=== PATIENT | male | born 1945 | race Caucasian/White ===

== ENCOUNTER 2018-01-15 13:25 | Inpatient (IN) | payer MEDICARE ==
[~2018-01-15 13:25] MED LIST: GLUCOSE 4 GM CHEW TABLET PO; MIRALAX *UNIT DOSE* 17GM PACKET PO; ONDANSETRON 4 MG TAB (S0181) PO
[2018-01-15] MEDS: NS 1,000 ML IV (15:00)
[2018-01-15] MEDS ORDERED: FUROSEMIDE 20 MG TAB PO (15:45)
[2018-01-15] MEDS: FLUoxetine 20 MG CAP PO (15:57)
[2018-01-15] MEDS: METHYLPHENIDATE 5 MG TAB PO (15:57)
[2018-01-15] MEDS: LIDOCAINE 5% (LIDODERM) PATCH TD (15:59)
[2018-01-15 16:39] LABS: IMMEDIATE SPIN CROSSMATCH 1 1
[2018-01-15 16:45] LABS: BEDSIDE GLUCOSE 112 MG/DL (83-110)
[2018-01-15] MEDS: HumaLOG INSULIN (NovoLOG) PER UNIT SC ×2 (16:54→21:00)
[2018-01-15] MEDS: SENNA 8.6 MG TAB (SENOKOT) PO (21:00)
[2018-01-15] MEDS: **NOTE PATIENT COMMENT** MISC XX (21:00)
[2018-01-15] MEDS: DOCUSATE SODIUM 100 MG CAP PO (21:00)
[2018-01-15 21:11] LABS: BEDSIDE GLUCOSE 243 MG/DL (83-110)
[2018-01-15] MEDS: APIXABAN 5 MG TAB (ELIQUIS) PO (21:31)
[2018-01-15] MEDS: diltiaZEM **CD** 180 MG CAP PO (21:31)
[2018-01-15] MEDS: METOPROLOL TARTRATE 100 MG TAB PO (21:32)
[2018-01-15] MEDS: LACTOBACILLUS ACIDOPHILUS CAP (BACID) PO (21:32)
[2018-01-16 06:41] LABS: BASO % 0.3 % (0.0-1.0); EOS # 0.2 10^3/uL (0.0-0.50); EOS % 1.6 % (0.0-3.0); HEMATOCRIT 25.9 % (42.0-52.0); HEMOGLOBIN 8.6 g/dl (13.5-17.5); IMMATURE GRANULOCYTE % 0.6 % (0-3.0); LYMPH # 1.2 10^3/uL (1.5-4.5); LYMPH % 10.1 % (24.0-44.0); MEAN CORPUSCULAR HEMOGLOBIN 28.9 pg (27.0-33.0); MEAN CORPUSCULAR HGB CONC 33.2 g/dl (32.0-36.5); MEAN CORPUSCULAR VOLUME 86.9 fl (80.0-96.0); MONO # 0.7 10^3/uL (0.0-0.8); MONO % 6.4 % (0.0-5.0); NEUTROPHILS # 9.4 10^3/uL (1.8-7.7); PLATELET COUNT, AUTOMATED 252 10^3/uL (150-450); RED BLOOD COUNT 2.98 10^6/uL (4.30-6.10); RED CELL DISTRIBUTION WIDTH 17.6 % (11.5-14.5); WHITE BLOOD COUNT 11.6 10^3/uL (4.0-10.0)
[2018-01-16 06:50] LABS: BEDSIDE GLUCOSE 132 MG/DL (83-110)
[2018-01-16 07:09] LABS: ALBUMIN 2.3 GM/DL (3.2-5.2); ALBUMIN/GLOBULIN RATIO 0.61 (1.00-1.93); ALKALINE PHOSPHATASE 85 U/L (45-117); ALT/SGPT 19 U/L (12-78); ANION GAP 7 MEQ/L (8-16); AST/SGOT 21 U/L (7-37); BILIRUBIN,TOTAL 0.7 MG/DL (0.2-1.0); BLOOD UREA NITROGEN 23 MG/DL (7-18); CALCIUM LEVEL 8.5 MG/DL (8.8-10.2); CARBON DIOXIDE LEVEL 28 MEQ/L (21-32); CHLORIDE LEVEL 110 MEQ/L (98-107); CREATININE FOR GFR 1.19 MG/DL (0.70-1.30); GLOMERULAR FILTRATION RATE > 60.0 (>42); GLUCOSE, FASTING 126 MG/DL (70-100); SODIUM LEVEL 145 MEQ/L (136-145); TOTAL PROTEIN 6.1 GM/DL (6.4-8.2)
[2018-01-16] MEDS: DOCUSATE SODIUM 100 MG CAP PO ×2 (08:13→21:15)
[2018-01-16] MEDS: LEVEMIR (INSULIN DETEMIR) 1 UNITS/0.01ML SC (08:38)
[2018-01-16] MEDS: HumaLOG INSULIN (NovoLOG) PER UNIT SC ×4 (08:39→21:15)
[2018-01-16] MEDS: LACTOBACILLUS ACIDOPHILUS CAP (BACID) PO ×2 (08:40→21:14)
[2018-01-16] MEDS: FLUoxetine 20 MG CAP PO (08:41)
[2018-01-16] MEDS: diltiaZEM **CD** 180 MG CAP PO ×2 (08:43→21:14)
[2018-01-16] MEDS: LISINOPRIL 20 MG TAB PO (08:43)
[2018-01-16] MEDS: METHYLPHENIDATE 5 MG TAB PO ×2 (08:43→13:00)
[2018-01-16] MEDS: APIXABAN 5 MG TAB (ELIQUIS) PO ×2 (08:44→21:15)
[2018-01-16] MEDS: DIGOXIN 0.125 MG TAB PO (08:44)
[2018-01-16] MEDS: MAGNESIUM GLUCONATE 500 MG TAB PO (08:44)
[2018-01-16] MEDS: MULTIVITAMINS/MINERALS THERAP 1 TAB PO (08:44)
[2018-01-16] MEDS: LIDOCAINE 5% (LIDODERM) PATCH TD (08:45)
[2018-01-16] MEDS: METOPROLOL TARTRATE 100 MG TAB PO ×2 (08:45→21:16)
[2018-01-16] MEDS: AMIODARONE 200 MG TAB (PACERONE) PO (08:45)
[2018-01-16 11:53] LABS: BEDSIDE GLUCOSE 122 MG/DL (83-110)
[2018-01-16] MEDS: ACETAMINOPHEN TAB 650MG DOSE (2X325MG) PO (13:01)
[2018-01-16 16:56] LABS: BEDSIDE GLUCOSE 59 MG/DL (83-110)
[2018-01-16 17:23] LABS: BEDSIDE GLUCOSE 74 MG/DL (83-110)
[2018-01-16 20:42] LABS: BEDSIDE GLUCOSE 128 MG/DL (83-110)
[2018-01-16] MEDS: **NOTE PATIENT COMMENT** MISC XX (21:15)
[2018-01-16] MEDS: SENNA 8.6 MG TAB (SENOKOT) PO (21:15)
[2018-01-17 06:58] LABS: BEDSIDE GLUCOSE 62 MG/DL (83-110)
[2018-01-17] MEDS: HumaLOG INSULIN (NovoLOG) PER UNIT SC ×4 (07:09→21:00)
[2018-01-17] MEDS: LIDOCAINE 5% (LIDODERM) PATCH TD (08:07)
[2018-01-17] MEDS: MAGNESIUM GLUCONATE 500 MG TAB PO (08:07)
[2018-01-17] MEDS: LEVEMIR (INSULIN DETEMIR) 1 UNITS/0.01ML SC (08:07)
[2018-01-17] MEDS: METHYLPHENIDATE 5 MG TAB PO ×2 (08:08→13:00)
[2018-01-17] MEDS: LISINOPRIL 20 MG TAB PO (08:08)
[2018-01-17] MEDS: METOPROLOL TARTRATE 100 MG TAB PO ×2 (08:08→21:43)
[2018-01-17] MEDS: diltiaZEM **CD** 180 MG CAP PO ×2 (08:08→21:43)
[2018-01-17] MEDS: LACTOBACILLUS ACIDOPHILUS CAP (BACID) PO ×2 (08:08→21:42)
[2018-01-17] MEDS: AMIODARONE 200 MG TAB (PACERONE) PO (08:09)
[2018-01-17] MEDS: DIGOXIN 0.125 MG TAB PO (08:09)
[2018-01-17] MEDS: DOCUSATE SODIUM 100 MG CAP PO ×2 (08:09→21:00)
[2018-01-17] MEDS: FLUoxetine 20 MG CAP PO (08:09)
[2018-01-17] MEDS: APIXABAN 5 MG TAB (ELIQUIS) PO ×2 (08:09→21:42)
[2018-01-17] MEDS: MULTIVITAMINS/MINERALS THERAP 1 TAB PO (08:09)
[2018-01-17 12:00] LABS: BEDSIDE GLUCOSE 159 MG/DL (83-110)
[2018-01-17] MEDS: DEXTROSE 50% 50 ML SYRINGE IV (17:26)
[2018-01-17] MEDS: GLUCAGON FOR INJ 1 MG VIAL (J1610) SC (17:26)
[2018-01-17 17:30] LABS: BEDSIDE GLUCOSE 24 MG/DL (83-110)
[2018-01-17 17:30] LABS: BEDSIDE GLUCOSE 113 MG/DL (83-110)
[2018-01-17 17:53] LABS: BEDSIDE GLUCOSE 140 MG/DL (83-110)
[2018-01-17 18:32] LABS: BEDSIDE GLUCOSE 187 MG/DL (83-110)
[2018-01-17 19:39] LABS: BEDSIDE GLUCOSE 209 MG/DL (83-110)
[2018-01-17 20:37] LABS: BEDSIDE GLUCOSE 181 MG/DL (83-110)
[2018-01-17] MEDS: SENNA 8.6 MG TAB (SENOKOT) PO (21:00)
[2018-01-17] MEDS: ACETAMINOPHEN TAB 650MG DOSE (2X325MG) PO (21:43)
[2018-01-17] MEDS: **NOTE PATIENT COMMENT** MISC XX (21:44)
[2018-01-18] MEDS: HumaLOG INSULIN (NovoLOG) PER UNIT SC ×3 (07:30→17:30)
[2018-01-18 07:52] LABS: BEDSIDE GLUCOSE 93 MG/DL (83-110)
[2018-01-18] MEDS: MULTIVITAMINS/MINERALS THERAP 1 TAB PO (09:01)
[2018-01-18] MEDS: DOCUSATE SODIUM 100 MG CAP PO (09:01)
[2018-01-18] MEDS: LACTOBACILLUS ACIDOPHILUS CAP (BACID) PO ×2 (09:01→20:25)
[2018-01-18] MEDS: LISINOPRIL 20 MG TAB PO (09:01)
[2018-01-18] MEDS: MAGNESIUM GLUCONATE 500 MG TAB PO (09:01)
[2018-01-18] MEDS: METOPROLOL TARTRATE 100 MG TAB PO ×2 (09:02→20:27)
[2018-01-18] MEDS: FLUoxetine 20 MG CAP PO (09:02)
[2018-01-18] MEDS: METHYLPHENIDATE 5 MG TAB PO ×2 (09:02→14:51)
[2018-01-18] MEDS: diltiaZEM **CD** 180 MG CAP PO ×2 (09:02→20:26)
[2018-01-18] MEDS: DIGOXIN 0.125 MG TAB PO (09:02)
[2018-01-18] MEDS: APIXABAN 5 MG TAB (ELIQUIS) PO ×2 (09:03→20:26)
[2018-01-18] MEDS: LIDOCAINE 5% (LIDODERM) PATCH TD (09:03)
[2018-01-18] MEDS: AMIODARONE 200 MG TAB (PACERONE) PO (09:03)
[2018-01-18] MEDS: LEVEMIR (INSULIN DETEMIR) 1 UNITS/0.01ML SC (09:04)
[2018-01-18 11:36] LABS: BEDSIDE GLUCOSE 203 MG/DL (83-110)
[2018-01-18 15:57] LABS: KETONE, URINE AUTO RFX NEGATIVE (NEGATIVE); MUCUS, URINE RFX SMALL (NEGATIVE); RBC, URINE AUTO RFX TNTC /HPF (0-3); SPECIFIC GRAVITY UR AUTO RFX 1.012 (1.002-1.035); SQUAM EPITHELIAL CELL UR AURFX 0 /HPF (0-6); YEAST LIKE CELL URINE AUTO RFX MODERATE
[2018-01-18 16:28] LABS: LEUKOCYTE ESTERASE UR AUTO RFX 3+ (NEGATIVE); NITRITE, URINE AUTO RFX POSITIVE (NEGATIVE); WBC, URINE AUTO RFX TNTC /HPF (0-3)
[2018-01-18 16:59] LABS: BEDSIDE GLUCOSE 63 MG/DL (83-110)
[2018-01-18 18:11] LABS: BEDSIDE GLUCOSE 76 MG/DL (83-110)
[2018-01-18] MEDS: SENNA 8.6 MG TAB (SENOKOT) PO (19:52)
[2018-01-18 19:57] LABS: BEDSIDE GLUCOSE 136 MG/DL (83-110)
[2018-01-18] MEDS: **NOTE PATIENT COMMENT** MISC XX (20:27)
[2018-01-19] MEDS: traZODone 50 MG TAB PO ×2 (00:22→23:29)
[2018-01-19 06:21] LABS: BEDSIDE GLUCOSE 109 MG/DL (83-110)
[2018-01-19] MEDS: APIXABAN 5 MG TAB (ELIQUIS) PO ×2 (08:18→21:22)
[2018-01-19] MEDS: LISINOPRIL 20 MG TAB PO ×2 (08:18→21:21)
[2018-01-19] MEDS: METHYLPHENIDATE 5 MG TAB PO ×2 (08:18→14:08)
[2018-01-19] MEDS: FLUoxetine 20 MG CAP PO (08:18)
[2018-01-19] MEDS: HumaLOG INSULIN (NovoLOG) PER UNIT SC ×3 (08:18→17:23)
[2018-01-19] MEDS: MAGNESIUM GLUCONATE 500 MG TAB PO ×2 (08:18→21:20)
[2018-01-19] MEDS: LACTOBACILLUS ACIDOPHILUS CAP (BACID) PO ×2 (08:18→21:20)
[2018-01-19] MEDS: diltiaZEM **CD** 180 MG CAP PO ×2 (08:19→21:22)
[2018-01-19] MEDS: MULTIVITAMINS/MINERALS THERAP 1 TAB PO (08:19)
[2018-01-19] MEDS: METOPROLOL TARTRATE 100 MG TAB PO ×2 (08:19→21:22)
[2018-01-19] MEDS: DIGOXIN 0.125 MG TAB PO (08:19)
[2018-01-19] MEDS: AMIODARONE 200 MG TAB (PACERONE) PO (08:19)
[2018-01-19] MEDS: LIDOCAINE 5% (LIDODERM) PATCH TD (08:20)
[2018-01-19] MEDS: LEVEMIR (INSULIN DETEMIR) 1 UNITS/0.01ML SC (08:20)
[2018-01-19 08:30] LABS: HEMOGLOBIN 8.8 g/dl (13.5-17.5); MEAN CORPUSCULAR HEMOGLOBIN 28.9 pg (27.0-33.0); MEAN CORPUSCULAR HGB CONC 32.6 g/dl (32.0-36.5); MEAN CORPUSCULAR VOLUME 88.8 fl (80.0-96.0); PLATELET COUNT, AUTOMATED 218 10^3/uL (150-450); RED BLOOD COUNT 3.04 10^6/uL (4.30-6.10); WHITE BLOOD COUNT 9.8 10^3/uL (4.0-10.0)
[2018-01-19 09:11] LABS: ALBUMIN 2.3 GM/DL (3.2-5.2); ALBUMIN/GLOBULIN RATIO 0.58 (1.00-1.93); ALKALINE PHOSPHATASE 84 U/L (45-117); ALT/SGPT 26 U/L (12-78); ANION GAP 7 MEQ/L (8-16); AST/SGOT 30 U/L (7-37); BILIRUBIN,TOTAL 0.6 MG/DL (0.2-1.0); BLOOD UREA NITROGEN 27 MG/DL (7-18); CALCIUM LEVEL 8.5 MG/DL (8.8-10.2); CARBON DIOXIDE LEVEL 28 MEQ/L (21-32); CHLORIDE LEVEL 106 MEQ/L (98-107); CREATININE FOR GFR 1.23 MG/DL (0.70-1.30); GLOMERULAR FILTRATION RATE > 60.0 (>42); GLUCOSE, FASTING 120 MG/DL (70-100); MAGNESIUM LEVEL 1.6 MG/DL (1.8-2.4); POTASSIUM SERUM 4.4 MEQ/L (3.5-5.1); SODIUM LEVEL 141 MEQ/L (136-145); TOTAL PROTEIN 6.3 GM/DL (6.4-8.2)
[2018-01-19] MEDS: **hydrALAZINE** 10 MG TAB PO (10:15)
[2018-01-19 12:18] LABS: BEDSIDE GLUCOSE 215 MG/DL (83-110)
[2018-01-19 13:38] LABS: KETONE, URINE AUTO RFX NEGATIVE (NEGATIVE); MUCUS, URINE RFX SMALL (NEGATIVE); NITRITE, URINE AUTO RFX NEGATIVE (NEGATIVE); RBC, URINE AUTO RFX TNTC /HPF (0-3); SPECIFIC GRAVITY UR AUTO RFX 1.012 (1.002-1.035); SQUAM EPITHELIAL CELL UR AURFX 0 /HPF (0-6)
[2018-01-19 13:44] LABS: LEUKOCYTE ESTERASE UR AUTO RFX 3+ (NEGATIVE); WBC, URINE AUTO RFX TNTC /HPF (0-3)
[2018-01-19 16:44] LABS: BEDSIDE GLUCOSE 239 MG/DL (83-110)
[2018-01-19 20:55] LABS: BEDSIDE GLUCOSE 169 MG/DL (83-110)
[2018-01-19] MEDS: **NOTE PATIENT COMMENT** MISC XX (21:00)
[2018-01-19] MEDS: SENNA 8.6 MG TAB (SENOKOT) PO (21:22)
[2018-01-19] MEDS: ACETAMINOPHEN TAB 650MG DOSE (2X325MG) PO (23:29)
[2018-01-20 07:29] LABS: BEDSIDE GLUCOSE 65 MG/DL (83-110)
[2018-01-20] MEDS: HumaLOG INSULIN (NovoLOG) PER UNIT SC ×3 (07:30→16:47)
[2018-01-20 07:50] LABS: HEMATOCRIT 27.3 % (42.0-52.0); HEMOGLOBIN 8.9 g/dl (13.5-17.5); MEAN CORPUSCULAR HEMOGLOBIN 28.8 pg (27.0-33.0); MEAN CORPUSCULAR HGB CONC 32.6 g/dl (32.0-36.5); MEAN CORPUSCULAR VOLUME 88.3 fl (80.0-96.0); PLATELET COUNT, AUTOMATED 232 10^3/uL (150-450); RED BLOOD COUNT 3.09 10^6/uL (4.30-6.10); RED CELL DISTRIBUTION WIDTH 16.4 % (11.5-14.5); WHITE BLOOD COUNT 12.5 10^3/uL (4.0-10.0)
[2018-01-20 08:21] LABS: ALBUMIN 2.3 GM/DL (3.2-5.2); ALBUMIN/GLOBULIN RATIO 0.49 (1.00-1.93); ALKALINE PHOSPHATASE 83 U/L (45-117); ALT/SGPT 29 U/L (12-78); ANION GAP 4 MEQ/L (8-16); AST/SGOT 27 U/L (7-37); BILIRUBIN,TOTAL 0.5 MG/DL (0.2-1.0); BLOOD UREA NITROGEN 29 MG/DL (7-18); CALCIUM LEVEL 9.1 MG/DL (8.8-10.2); CARBON DIOXIDE LEVEL 30 MEQ/L (21-32); CHLORIDE LEVEL 106 MEQ/L (98-107); CREATININE FOR GFR 1.41 MG/DL (0.70-1.30); FERRITIN 1067 NG/ML (26-388); GLOMERULAR FILTRATION RATE 52.6 (>42); GLUCOSE, FASTING 79 MG/DL (70-100); IRON (FE) 16 UG/DL (65-175); MAGNESIUM LEVEL 1.7 MG/DL (1.8-2.4); PERCENT SATURATION 8.2 % (19.7-50.0); POTASSIUM SERUM 4.8 MEQ/L (3.5-5.1); SODIUM LEVEL 140 MEQ/L (136-145); TOTAL IRON BINDING CAPACITY 194 UG/DL (250-450)
[2018-01-20] MEDS: APIXABAN 5 MG TAB (ELIQUIS) PO ×2 (09:13→21:25)
[2018-01-20] MEDS: METOPROLOL TARTRATE 100 MG TAB PO ×2 (09:13→21:25)
[2018-01-20] MEDS: LISINOPRIL 20 MG TAB PO ×2 (09:13→21:26)
[2018-01-20] MEDS: MULTIVITAMINS/MINERALS THERAP 1 TAB PO (09:14)
[2018-01-20] MEDS: AMIODARONE 200 MG TAB (PACERONE) PO (09:14)
[2018-01-20] MEDS: MAGNESIUM GLUCONATE 500 MG TAB PO ×2 (09:14→21:24)
[2018-01-20] MEDS: FLUoxetine 20 MG CAP PO (09:14)
[2018-01-20] MEDS: diltiaZEM **CD** 180 MG CAP PO ×2 (09:14→21:25)
[2018-01-20] MEDS: METHYLPHENIDATE 5 MG TAB PO ×2 (09:14→13:12)
[2018-01-20] MEDS: LACTOBACILLUS ACIDOPHILUS CAP (BACID) PO ×2 (09:14→21:24)
[2018-01-20] MEDS: DIGOXIN 0.125 MG TAB PO (09:15)
[2018-01-20] MEDS: LIDOCAINE 5% (LIDODERM) PATCH TD (09:15)
[2018-01-20] MEDS: LEVEMIR (INSULIN DETEMIR) 1 UNITS/0.01ML SC (09:22)
[2018-01-20 11:53] LABS: BEDSIDE GLUCOSE 154 MG/DL (83-110)
[2018-01-20 12:08] LABS: VITAMIN B12 LEVEL 531 PG/ML (247-911)
[2018-01-20 12:09] LABS: FOLATE 11.5 NG/ML (>5.4)
[2018-01-20] MEDS: cefTRIAXone SOD 1 GM in D5W MINI-BAG PLUS 50 ML IV (13:12)
[2018-01-20 16:42] LABS: BEDSIDE GLUCOSE 170 MG/DL (83-110)
[2018-01-20] MEDS: **NOTE PATIENT COMMENT** MISC XX (21:00)
[2018-01-20] MEDS: SENNA 8.6 MG TAB (SENOKOT) PO (21:00)
[2018-01-20] MEDS: FERROUS SULFATE 325MG TAB PO (21:24)
[2018-01-20 23:20] LABS: BEDSIDE GLUCOSE 320 MG/DL (83-110)
[2018-01-21 07:03] LABS: BEDSIDE GLUCOSE 118 MG/DL (83-110)
[2018-01-21] MEDS: HumaLOG INSULIN (NovoLOG) PER UNIT SC ×3 (07:30→16:44)
[2018-01-21] MEDS: LIDOCAINE 5% (LIDODERM) PATCH TD (09:09)
[2018-01-21] MEDS: MAGNESIUM GLUCONATE 500 MG TAB PO ×2 (09:10→21:35)
[2018-01-21] MEDS: LACTOBACILLUS ACIDOPHILUS CAP (BACID) PO ×2 (09:10→21:00)
[2018-01-21] MEDS: LEVEMIR (INSULIN DETEMIR) 1 UNITS/0.01ML SC (09:10)
[2018-01-21] MEDS: METOPROLOL TARTRATE 100 MG TAB PO ×2 (09:10→21:37)
[2018-01-21] MEDS: diltiaZEM **CD** 180 MG CAP PO ×2 (09:11→21:37)
[2018-01-21] MEDS: LISINOPRIL 20 MG TAB PO ×2 (09:11→21:36)
[2018-01-21] MEDS: DIGOXIN 0.125 MG TAB PO (09:11)
[2018-01-21] MEDS: METHYLPHENIDATE 5 MG TAB PO ×2 (09:11→14:11)
[2018-01-21] MEDS: AMIODARONE 200 MG TAB (PACERONE) PO (09:11)
[2018-01-21] MEDS: APIXABAN 5 MG TAB (ELIQUIS) PO ×2 (09:11→21:36)
[2018-01-21] MEDS: FERROUS SULFATE 325MG TAB PO ×2 (09:11→21:37)
[2018-01-21] MEDS: FLUoxetine 20 MG CAP PO (09:11)
[2018-01-21] MEDS: MULTIVITAMINS/MINERALS THERAP 1 TAB PO (09:11)
[2018-01-21 12:17] LABS: BEDSIDE GLUCOSE 217 MG/DL (83-110)
[2018-01-21] MEDS: cefTRIAXone SOD 1 GM in D5W MINI-BAG PLUS 50 ML IV (12:31)
[2018-01-21 16:51] LABS: BEDSIDE GLUCOSE 137 MG/DL (83-110)
[2018-01-21] MEDS: SENNA 8.6 MG TAB (SENOKOT) PO (21:00)
[2018-01-21] MEDS: **NOTE PATIENT COMMENT** MISC XX (21:37)
[2018-01-21 21:40] LABS: BEDSIDE GLUCOSE 159 MG/DL (83-110)
[2018-01-22] MEDS: CHLORHEXIDINE ORAL RINSE 0.12%/15ML 120ML BOTTLE MT
[2018-01-22 07:01] LABS: BEDSIDE GLUCOSE 91 MG/DL (83-110)
[2018-01-22 07:35] LABS: BASO % 0.1 % (0.0-1.0); EOS # 0.1 10^3/uL (0.0-0.50); EOS % 0.4 % (0.0-3.0); HEMATOCRIT 27.5 % (42.0-52.0); HEMOGLOBIN 9.2 g/dl (13.5-17.5); IMMATURE GRANULOCYTE % 0.5 % (0-3.0); LYMPH # 1.1 10^3/uL (1.5-4.5); MEAN CORPUSCULAR HEMOGLOBIN 29.1 pg (27.0-33.0); MEAN CORPUSCULAR HGB CONC 33.5 g/dl (32.0-36.5); MONO # 0.8 10^3/uL (0.0-0.8); MONO % 6.1 % (0.0-5.0); NEUTROPHILS # 11.7 10^3/uL (1.8-7.7); NEUTROPHILS % 84.9 % (36.0-66.0); PLATELET COUNT, AUTOMATED 261 10^3/uL (150-450); RED BLOOD COUNT 3.16 10^6/uL (4.30-6.10); RED CELL DISTRIBUTION WIDTH 16.1 % (11.5-14.5); WHITE BLOOD COUNT 13.7 10^3/uL (4.0-10.0)
[2018-01-22 08:09] LABS: ANION GAP 6 MEQ/L (8-16); BLOOD UREA NITROGEN 26 MG/DL (7-18); CALCIUM LEVEL 8.5 MG/DL (8.8-10.2); CARBON DIOXIDE LEVEL 29 MEQ/L (21-32); CHLORIDE LEVEL 105 MEQ/L (98-107); CREATININE FOR GFR 1.38 MG/DL (0.70-1.30); GLOMERULAR FILTRATION RATE 53.9 (>42); GLUCOSE, FASTING 90 MG/DL (70-100); POTASSIUM SERUM 4.3 MEQ/L (3.5-5.1); SODIUM LEVEL 140 MEQ/L (136-145)
[2018-01-22 08:18] LABS: BEDSIDE GLUCOSE 93 MG/DL (83-110)
[2018-01-22] MEDS: HumaLOG INSULIN (NovoLOG) PER UNIT SC ×3 (08:19→17:03)
[2018-01-22] MEDS: METHYLPHENIDATE 5 MG TAB PO ×2 (08:20→14:23)
[2018-01-22] MEDS: MULTIVITAMINS/MINERALS THERAP 1 TAB PO (08:20)
[2018-01-22] MEDS: FERROUS SULFATE 325MG TAB PO ×2 (08:20→20:57)
[2018-01-22] MEDS: LACTOBACILLUS ACIDOPHILUS CAP (BACID) PO ×2 (08:20→20:58)
[2018-01-22] MEDS: APIXABAN 5 MG TAB (ELIQUIS) PO ×2 (08:20→20:58)
[2018-01-22] MEDS: LEVEMIR (INSULIN DETEMIR) 1 UNITS/0.01ML SC (08:20)
[2018-01-22] MEDS: MAGNESIUM GLUCONATE 500 MG TAB PO ×2 (08:21→21:04)
[2018-01-22] MEDS: LISINOPRIL 20 MG TAB PO ×2 (08:21→21:00)
[2018-01-22] MEDS: DIGOXIN 0.125 MG TAB PO (08:21)
[2018-01-22] MEDS: AMIODARONE 200 MG TAB (PACERONE) PO (08:21)
[2018-01-22] MEDS: METOPROLOL TARTRATE 100 MG TAB PO ×2 (08:22→21:00)
[2018-01-22] MEDS: diltiaZEM **CD** 180 MG CAP PO ×2 (08:22→21:00)
[2018-01-22] MEDS: FLUoxetine 20 MG CAP PO (08:22)
[2018-01-22] MEDS: LIDOCAINE 5% (LIDODERM) PATCH TD (08:22)
[2018-01-22] MEDS: ACETAMINOPHEN TAB 650MG DOSE (2X325MG) PO ×2 (10:12→20:58)
[2018-01-22] MEDS: cefTRIAXone SOD 1 GM in D5W MINI-BAG PLUS 50 ML IV (11:22)
[2018-01-22 11:36] LABS: BEDSIDE GLUCOSE 330 MG/DL (83-110)
[2018-01-22 17:05] LABS: BEDSIDE GLUCOSE 84 MG/DL (83-110)
[2018-01-22] MEDS: SENNA 8.6 MG TAB (SENOKOT) PO (20:57)
[2018-01-22] MEDS: traZODone 50 MG TAB PO (20:58)
[2018-01-22] MEDS: **NOTE PATIENT COMMENT** MISC XX (21:01)
[2018-01-22 21:36] LABS: BEDSIDE GLUCOSE 72 MG/DL (83-110)
[2018-01-23 07:01] LABS: BEDSIDE GLUCOSE 98 MG/DL (83-110)
[2018-01-23] MEDS: HumaLOG INSULIN (NovoLOG) PER UNIT SC ×3 (07:30→17:30)
[2018-01-23] MEDS: diltiaZEM **CD** 180 MG CAP PO ×2 (08:59→20:58)
[2018-01-23] MEDS: AMIODARONE 200 MG TAB (PACERONE) PO (08:59)
[2018-01-23] MEDS: FERROUS SULFATE 325MG TAB PO ×2 (08:59→20:58)
[2018-01-23] MEDS: APIXABAN 5 MG TAB (ELIQUIS) PO ×2 (08:59→20:58)
[2018-01-23] MEDS: DIGOXIN 0.125 MG TAB PO (08:59)
[2018-01-23] MEDS: FLUoxetine 20 MG CAP PO (08:59)
[2018-01-23] MEDS: LACTOBACILLUS ACIDOPHILUS CAP (BACID) PO ×2 (08:59→20:58)
[2018-01-23] MEDS: LIDOCAINE 5% (LIDODERM) PATCH TD (09:00)
[2018-01-23] MEDS: LEVEMIR (INSULIN DETEMIR) 1 UNITS/0.01ML SC (09:01)
[2018-01-23] MEDS: MULTIVITAMINS/MINERALS THERAP 1 TAB PO (09:05)
[2018-01-23] MEDS: MAGNESIUM GLUCONATE 500 MG TAB PO ×2 (09:05→20:58)
[2018-01-23] MEDS: LISINOPRIL 20 MG TAB PO ×2 (09:05→20:58)
[2018-01-23] MEDS: METHYLPHENIDATE 5 MG TAB PO ×2 (09:06→14:24)
[2018-01-23] MEDS: METOPROLOL TARTRATE 100 MG TAB PO ×2 (09:06→20:58)
[2018-01-23 12:19] LABS: BEDSIDE GLUCOSE 278 MG/DL (83-110)
[2018-01-23] MEDS: cefTRIAXone SOD 1 GM in D5W MINI-BAG PLUS 50 ML IV (12:28)
[2018-01-23] MEDS: BISACODYL 5 MG TAB PO (14:24)
[2018-01-23] MEDS: BISACODYL 10 MG SUPP PR (14:25)
[2018-01-23 17:04] LABS: BEDSIDE GLUCOSE 156 MG/DL (83-110)
[2018-01-23 19:47] LABS: BEDSIDE GLUCOSE 230 MG/DL (83-110)
[2018-01-23] MEDS: ACETAMINOPHEN TAB 650MG DOSE (2X325MG) PO (20:11)
[2018-01-23] MEDS: SENNA 8.6 MG TAB (SENOKOT) PO (20:58)
[2018-01-23] MEDS: **NOTE PATIENT COMMENT** MISC XX (20:59)
[2018-01-23 22:11] LABS: HEMATOCRIT 25.4 % (42.0-52.0); HEMOGLOBIN 8.4 g/dl (13.5-17.5); MEAN CORPUSCULAR HEMOGLOBIN 28.8 pg (27.0-33.0); MEAN CORPUSCULAR HGB CONC 33.1 g/dl (32.0-36.5); PLATELET COUNT, AUTOMATED 245 10^3/uL (150-450); RED BLOOD COUNT 2.92 10^6/uL (4.30-6.10); RED CELL DISTRIBUTION WIDTH 16.1 % (11.5-14.5); WHITE BLOOD COUNT 14.9 10^3/uL (4.0-10.0)
[2018-01-23 22:31] LABS: ANION GAP 8 MEQ/L (8-16); BLOOD UREA NITROGEN 29 MG/DL (7-18); CALCIUM LEVEL 8.4 MG/DL (8.8-10.2); CARBON DIOXIDE LEVEL 25 MEQ/L (21-32); CHLORIDE LEVEL 103 MEQ/L (98-107); CREATININE FOR GFR 1.66 MG/DL (0.70-1.30); GLOMERULAR FILTRATION RATE 43.6 (>42); GLUCOSE, FASTING 257 MG/DL (70-100); MAGNESIUM LEVEL 1.5 MG/DL (1.8-2.4); POTASSIUM SERUM 4.3 MEQ/L (3.5-5.1); SODIUM LEVEL 136 MEQ/L (136-145)
[2018-01-23 22:43] LABS: LACTIC ACID SEPSIS PROTOCOL 2.5 MMOL/L (0.4-2.0)
[2018-01-23] MEDS: NS 1,000 ML IV ×2 (22:57→23:56)
[2018-01-23] MEDS: traZODone 50 MG TAB PO (23:13)
[2018-01-24 07:23] LABS: BEDSIDE GLUCOSE 148 MG/DL (83-110)
[2018-01-24] MEDS: HumaLOG INSULIN (NovoLOG) PER UNIT SC ×3 (07:30→17:30)
[2018-01-24] MEDS: FERROUS SULFATE 325MG TAB PO ×2 (09:26→20:57)
[2018-01-24] MEDS: MULTIVITAMINS/MINERALS THERAP 1 TAB PO (09:26)
[2018-01-24] MEDS: LACTOBACILLUS ACIDOPHILUS CAP (BACID) PO ×2 (09:26→20:56)
[2018-01-24] MEDS: MAGNESIUM GLUCONATE 500 MG TAB PO ×2 (09:26→20:57)
[2018-01-24] MEDS: APIXABAN 5 MG TAB (ELIQUIS) PO ×2 (09:27→20:57)
[2018-01-24] MEDS: DIGOXIN 0.125 MG TAB PO (09:27)
[2018-01-24] MEDS: ACETAMINOPHEN TAB 650MG DOSE (2X325MG) PO (09:28)
[2018-01-24] MEDS: METHYLPHENIDATE 5 MG TAB PO ×2 (09:28→12:56)
[2018-01-24] MEDS: diltiaZEM **CD** 180 MG CAP PO ×2 (09:29→20:56)
[2018-01-24] MEDS: METOPROLOL TARTRATE 100 MG TAB PO ×2 (09:29→20:56)
[2018-01-24] MEDS: FLUoxetine 20 MG CAP PO (09:29)
[2018-01-24] MEDS: LISINOPRIL 20 MG TAB PO ×2 (09:29→20:56)
[2018-01-24] MEDS: AMIODARONE 200 MG TAB (PACERONE) PO (09:30)
[2018-01-24] MEDS: LIDOCAINE 5% (LIDODERM) PATCH TD (09:30)
[2018-01-24] MEDS: LEVEMIR (INSULIN DETEMIR) 1 UNITS/0.01ML SC (09:31)
[2018-01-24 12:44] LABS: BEDSIDE GLUCOSE 396 MG/DL (83-110)
[2018-01-24] MEDS: cefTRIAXone SOD 1 GM in D5W MINI-BAG PLUS 50 ML IV (12:56)
[2018-01-24] MEDS: NS 1,000 ML IV (12:56)
[2018-01-24 17:34] LABS: BEDSIDE GLUCOSE 144 MG/DL (83-110)
[2018-01-24] MEDS: SENNA 8.6 MG TAB (SENOKOT) PO (20:56)
[2018-01-24] MEDS: **NOTE PATIENT COMMENT** MISC XX (20:57)
[2018-01-24 21:13] LABS: BEDSIDE GLUCOSE 142 MG/DL (83-110)
[2018-01-25 07:54] LABS: BEDSIDE GLUCOSE 92 MG/DL (83-110)
[2018-01-25] MEDS: HumaLOG INSULIN (NovoLOG) PER UNIT SC ×3 (07:58→18:08)
[2018-01-25] MEDS: METOPROLOL TARTRATE 100 MG TAB PO ×2 (08:46→21:40)
[2018-01-25] MEDS: MULTIVITAMINS/MINERALS THERAP 1 TAB PO (08:46)
[2018-01-25] MEDS: LISINOPRIL 20 MG TAB PO ×2 (08:46→21:39)
[2018-01-25] MEDS: FERROUS SULFATE 325MG TAB PO ×2 (08:46→21:40)
[2018-01-25] MEDS: AMIODARONE 200 MG TAB (PACERONE) PO (08:46)
[2018-01-25] MEDS: LACTOBACILLUS ACIDOPHILUS CAP (BACID) PO ×2 (08:46→21:38)
[2018-01-25] MEDS: FLUoxetine 20 MG CAP PO (08:47)
[2018-01-25] MEDS: diltiaZEM **CD** 180 MG CAP PO ×2 (08:47→21:39)
[2018-01-25] MEDS: METHYLPHENIDATE 5 MG TAB PO ×2 (08:47→13:56)
[2018-01-25] MEDS: DIGOXIN 0.125 MG TAB PO (08:47)
[2018-01-25] MEDS: MAGNESIUM GLUCONATE 500 MG TAB PO ×2 (08:47→21:39)
[2018-01-25] MEDS: APIXABAN 5 MG TAB (ELIQUIS) PO ×2 (08:47→21:39)
[2018-01-25] MEDS: LIDOCAINE 5% (LIDODERM) PATCH TD (08:48)
[2018-01-25] MEDS: LEVEMIR (INSULIN DETEMIR) 1 UNITS/0.01ML SC (08:48)
[2018-01-25 11:42] LABS: BEDSIDE GLUCOSE 392 MG/DL (83-110)
[2018-01-25] MEDS ORDERED: cefTRIAXone SOD 1 GM VIAL (J0696) IM (12:00)
[2018-01-25] MEDS ORDERED: cefTRIAXone SOD 1 GM in D5W MINI-BAG PLUS 50 ML IV (13:00)
[2018-01-25] MEDS: cefTRIAXone SOD 1 GM in D5W MINI-BAG PLUS 50 ML IV (13:01)
[2018-01-25] MEDS: NS 1,000 ML IV (16:29)
[2018-01-25] MEDS: MEGESTROL ES SUSP 625 MG/5 ML UDC PO (16:30)
[2018-01-25 16:39] LABS: BEDSIDE GLUCOSE 160 MG/DL (83-110)
[2018-01-25] MEDS: **NOTE PATIENT COMMENT** MISC XX (21:00)
[2018-01-25] MEDS: SENNA 8.6 MG TAB (SENOKOT) PO (21:40)
[2018-01-25 21:59] LABS: BEDSIDE GLUCOSE 175 MG/DL (83-110)
[2018-01-25] MEDS: traZODone 50 MG TAB PO (23:21)
[2018-01-26 05:24] LABS: BEDSIDE GLUCOSE 147 MG/DL (83-110)
[2018-01-26] MEDS: HumaLOG INSULIN (NovoLOG) PER UNIT SC ×3 (08:05→17:38)
[2018-01-26] MEDS: METHYLPHENIDATE 5 MG TAB PO ×2 (09:26→14:57)
[2018-01-26] MEDS: diltiaZEM **CD** 180 MG CAP PO ×2 (09:26→21:46)
[2018-01-26] MEDS: LACTOBACILLUS ACIDOPHILUS CAP (BACID) PO ×2 (09:27→21:42)
[2018-01-26] MEDS: APIXABAN 5 MG TAB (ELIQUIS) PO ×2 (09:27→21:42)
[2018-01-26] MEDS: MAGNESIUM GLUCONATE 500 MG TAB PO ×2 (09:27→21:42)
[2018-01-26] MEDS: MULTIVITAMINS/MINERALS THERAP 1 TAB PO (09:27)
[2018-01-26] MEDS: FLUoxetine 20 MG CAP PO (09:27)
[2018-01-26] MEDS: AMIODARONE 200 MG TAB (PACERONE) PO (09:27)
[2018-01-26] MEDS: METOPROLOL TARTRATE 100 MG TAB PO ×2 (09:27→21:47)
[2018-01-26] MEDS: DIGOXIN 0.125 MG TAB PO (09:28)
[2018-01-26] MEDS: FERROUS SULFATE 325MG TAB PO ×2 (09:28→21:42)
[2018-01-26] MEDS: MEGESTROL ES SUSP 625 MG/5 ML UDC PO (09:28)
[2018-01-26] MEDS: LIDOCAINE 5% (LIDODERM) PATCH TD (09:28)
[2018-01-26] MEDS: LEVEMIR (INSULIN DETEMIR) 1 UNITS/0.01ML SC (09:28)
[2018-01-26] MEDS: LISINOPRIL 20 MG TAB PO ×2 (09:29→21:46)
[2018-01-26] MEDS: NS 1,000 ML IV (10:50)
[2018-01-26 11:20] LABS: BASO % 0.3 % (0.0-1.0); EOS # 0.1 10^3/uL (0.0-0.50); EOS % 1.2 % (0.0-3.0); HEMATOCRIT 24.2 % (42.0-52.0); HEMOGLOBIN 8.2 g/dl (13.5-17.5); IMMATURE GRANULOCYTE % 0.8 % (0-3.0); LYMPH # 1.3 10^3/uL (1.5-4.5); LYMPH % 12.1 % (24.0-44.0); MEAN CORPUSCULAR HEMOGLOBIN 29.9 pg (27.0-33.0); MEAN CORPUSCULAR HGB CONC 33.9 g/dl (32.0-36.5); MEAN CORPUSCULAR VOLUME 88.3 fl (80.0-96.0); MONO # 0.6 10^3/uL (0.0-0.8); MONO % 5.7 % (0.0-5.0); NEUTROPHILS # 8.5 10^3/uL (1.8-7.7); NEUTROPHILS % 79.9 % (36.0-66.0); PLATELET COUNT, AUTOMATED 246 10^3/uL (150-450); RED BLOOD COUNT 2.74 10^6/uL (4.30-6.10); RED CELL DISTRIBUTION WIDTH 15.8 % (11.5-14.5); WHITE BLOOD COUNT 10.7 10^3/uL (4.0-10.0)
[2018-01-26 11:31] LABS: PROTHROMBIN TIME 21.4 SECONDS (12.4-14.5)
[2018-01-26 11:32] LABS: ALBUMIN 2.1 GM/DL (3.2-5.2); ALBUMIN/GLOBULIN RATIO 0.53 (1.00-1.93); ALKALINE PHOSPHATASE 94 U/L (45-117); ALT/SGPT 30 U/L (12-78); ANION GAP 6 MEQ/L (8-16); AST/SGOT 22 U/L (7-37); BILIRUBIN,TOTAL 0.3 MG/DL (0.2-1.0); BLOOD UREA NITROGEN 18 MG/DL (7-18); CALCIUM LEVEL 8.6 MG/DL (8.8-10.2); CARBON DIOXIDE LEVEL 27 MEQ/L (21-32); CHLORIDE LEVEL 108 MEQ/L (98-107); CREATININE FOR GFR 1.03 MG/DL (0.70-1.30); GLOMERULAR FILTRATION RATE > 60.0 (>42); GLUCOSE, FASTING 199 MG/DL (70-100); MAGNESIUM LEVEL 1.5 MG/DL (1.8-2.4); POTASSIUM SERUM 4.4 MEQ/L (3.5-5.1); SODIUM LEVEL 141 MEQ/L (136-145); TOTAL PROTEIN 6.1 GM/DL (6.4-8.2)
[2018-01-26 12:26] LABS: BEDSIDE GLUCOSE 205 MG/DL (83-110)
[2018-01-26] MEDS: MAG SULF 1GM/100ML (MAG RUN) 1 GM in APPROPRIATE DILUENT 1 EA IV ×2 (12:38→14:57)
[2018-01-26] MEDS: cefTRIAXone SOD 1 GM in D5W MINI-BAG PLUS 50 ML IV (13:42)
[2018-01-26 17:16] LABS: BEDSIDE GLUCOSE 234 MG/DL (83-110)
[2018-01-26 20:52] LABS: BEDSIDE GLUCOSE 318 MG/DL (83-110)
[2018-01-26] MEDS: **NOTE PATIENT COMMENT** MISC XX (21:00)
[2018-01-26] MEDS: SENNA 8.6 MG TAB (SENOKOT) PO (21:42)
[2018-01-27] MEDS: NS 1,000 ML IV (06:25)
[2018-01-27 06:30] LABS: BEDSIDE GLUCOSE 101 MG/DL (83-110)
[2018-01-27] MEDS: HumaLOG INSULIN (NovoLOG) PER UNIT SC ×3 (07:42→17:09)
[2018-01-27] MEDS: METHYLPHENIDATE 5 MG TAB PO ×2 (08:41→14:50)
[2018-01-27] MEDS: APIXABAN 5 MG TAB (ELIQUIS) PO (08:41)
[2018-01-27] MEDS: AMIODARONE 200 MG TAB (PACERONE) PO (08:42)
[2018-01-27] MEDS: MEGESTROL ES SUSP 625 MG/5 ML UDC PO (08:42)
[2018-01-27] MEDS: MAGNESIUM GLUCONATE 500 MG TAB PO ×2 (08:42→20:39)
[2018-01-27] MEDS: MULTIVITAMINS/MINERALS THERAP 1 TAB PO (08:42)
[2018-01-27] MEDS: FLUoxetine 20 MG CAP PO (08:43)
[2018-01-27] MEDS: LACTOBACILLUS ACIDOPHILUS CAP (BACID) PO ×2 (08:43→20:40)
[2018-01-27] MEDS: FERROUS SULFATE 325MG TAB PO ×2 (08:43→20:40)
[2018-01-27] MEDS: diltiaZEM **CD** 180 MG CAP PO ×2 (08:43→20:39)
[2018-01-27] MEDS: LISINOPRIL 20 MG TAB PO ×2 (08:43→20:40)
[2018-01-27] MEDS: METOPROLOL TARTRATE 100 MG TAB PO ×2 (08:43→20:40)
[2018-01-27] MEDS: LEVEMIR (INSULIN DETEMIR) 1 UNITS/0.01ML SC (08:44)
[2018-01-27] MEDS: DIGOXIN 0.125 MG TAB PO (08:44)
[2018-01-27] MEDS: LIDOCAINE 5% (LIDODERM) PATCH TD (08:44)
[2018-01-27] MEDS: ACETAMINOPHEN TAB 650MG DOSE (2X325MG) PO ×2 (09:28→20:40)
[2018-01-27 11:10] LABS: HEMATOCRIT 25.2 % (42.0-52.0); HEMOGLOBIN 8.2 g/dl (13.5-17.5); MEAN CORPUSCULAR HEMOGLOBIN 28.3 pg (27.0-33.0); MEAN CORPUSCULAR HGB CONC 32.5 g/dl (32.0-36.5); MEAN CORPUSCULAR VOLUME 86.9 fl (80.0-96.0); PLATELET COUNT, AUTOMATED 251 10^3/uL (150-450); RED CELL DISTRIBUTION WIDTH 15.9 % (11.5-14.5); WHITE BLOOD COUNT 12.8 10^3/uL (4.0-10.0)
[2018-01-27 12:12] LABS: ALBUMIN 2.2 GM/DL (3.2-5.2); ALBUMIN/GLOBULIN RATIO 0.54 (1.00-1.93); ALKALINE PHOSPHATASE 102 U/L (45-117); ALT/SGPT 28 U/L (12-78); ANION GAP 7 MEQ/L (8-16); AST/SGOT 19 U/L (7-37); BILIRUBIN,TOTAL 0.3 MG/DL (0.2-1.0); BLOOD UREA NITROGEN 18 MG/DL (7-18); CALCIUM LEVEL 8.4 MG/DL (8.8-10.2); CARBON DIOXIDE LEVEL 27 MEQ/L (21-32); CHLORIDE LEVEL 108 MEQ/L (98-107); GLOMERULAR FILTRATION RATE > 60.0 (>42); GLUCOSE, FASTING 303 MG/DL (70-100); POTASSIUM SERUM 4.2 MEQ/L (3.5-5.1); SODIUM LEVEL 142 MEQ/L (136-145); TOTAL PROTEIN 6.3 GM/DL (6.4-8.2)
[2018-01-27] MEDS: cefTRIAXone SOD 1 GM in D5W MINI-BAG PLUS 50 ML IV (12:24)
[2018-01-27 16:44] LABS: BEDSIDE GLUCOSE 290 MG/DL (83-110)
[2018-01-27 20:34] LABS: BEDSIDE GLUCOSE 181 MG/DL (83-110)
[2018-01-27] MEDS: traZODone 50 MG TAB PO (20:39)
[2018-01-27] MEDS: SENNA 8.6 MG TAB (SENOKOT) PO (20:40)
[2018-01-27] MEDS: **NOTE PATIENT COMMENT** MISC XX (20:41)
[2018-01-28] MEDS: NS 1,000 ML IV ×2 (03:51→14:50)
[2018-01-28 06:16] LABS: HEMATOCRIT 25.2 % (42.0-52.0); HEMOGLOBIN 8.2 g/dl (13.5-17.5); MEAN CORPUSCULAR HEMOGLOBIN 28.7 pg (27.0-33.0); MEAN CORPUSCULAR HGB CONC 32.5 g/dl (32.0-36.5); MEAN CORPUSCULAR VOLUME 88.1 fl (80.0-96.0); PLATELET COUNT, AUTOMATED 268 10^3/uL (150-450); RED BLOOD COUNT 2.86 10^6/uL (4.30-6.10); RED CELL DISTRIBUTION WIDTH 15.9 % (11.5-14.5); WHITE BLOOD COUNT 14.6 10^3/uL (4.0-10.0)
[2018-01-28 06:43] LABS: ALBUMIN 2.1 GM/DL (3.2-5.2); ALBUMIN/GLOBULIN RATIO 0.54 (1.00-1.93); ALKALINE PHOSPHATASE 89 U/L (45-117); ALT/SGPT 26 U/L (12-78); ANION GAP 6 MEQ/L (8-16); AST/SGOT 18 U/L (7-37); BILIRUBIN,TOTAL 0.4 MG/DL (0.2-1.0); BLOOD UREA NITROGEN 15 MG/DL (7-18); CALCIUM LEVEL 8.5 MG/DL (8.8-10.2); CARBON DIOXIDE LEVEL 28 MEQ/L (21-32); CHLORIDE LEVEL 105 MEQ/L (98-107); GLOMERULAR FILTRATION RATE > 60.0 (>42); GLUCOSE, FASTING 81 MG/DL (70-100); MAGNESIUM LEVEL 1.6 MG/DL (1.8-2.4); SODIUM LEVEL 139 MEQ/L (136-145)
[2018-01-28] MEDS: HumaLOG INSULIN (NovoLOG) PER UNIT SC ×3 (07:30→16:43)
[2018-01-28] MEDS: MEGESTROL ES SUSP 625 MG/5 ML UDC PO (09:09)
[2018-01-28] MEDS: FLUoxetine 20 MG CAP PO (09:09)
[2018-01-28] MEDS: LEVEMIR (INSULIN DETEMIR) 1 UNITS/0.01ML SC (09:11)
[2018-01-28] MEDS: LACTOBACILLUS ACIDOPHILUS CAP (BACID) PO ×2 (09:11→20:38)
[2018-01-28] MEDS: MULTIVITAMINS/MINERALS THERAP 1 TAB PO (09:11)
[2018-01-28] MEDS: FERROUS SULFATE 325MG TAB PO ×2 (09:11→20:36)
[2018-01-28] MEDS: MAGNESIUM GLUCONATE 500 MG TAB PO ×2 (09:11→20:37)
[2018-01-28] MEDS: METHYLPHENIDATE 5 MG TAB PO ×2 (09:12→13:51)
[2018-01-28] MEDS: AMIODARONE 200 MG TAB (PACERONE) PO (09:12)
[2018-01-28] MEDS: METOPROLOL TARTRATE 100 MG TAB PO ×2 (09:12→20:36)
[2018-01-28] MEDS: diltiaZEM **CD** 180 MG CAP PO ×2 (09:12→20:37)
[2018-01-28] MEDS: DIGOXIN 0.125 MG TAB PO (09:13)
[2018-01-28] MEDS: LISINOPRIL 20 MG TAB PO ×2 (09:13→20:37)
[2018-01-28] MEDS: LIDOCAINE 5% (LIDODERM) PATCH TD (09:13)
[2018-01-28 12:32] LABS: BEDSIDE GLUCOSE 136 MG/DL (83-110)
[2018-01-28] MEDS: cefTRIAXone SOD 1 GM in D5W MINI-BAG PLUS 50 ML IV (12:45)
[2018-01-28 16:48] LABS: BEDSIDE GLUCOSE 108 MG/DL (83-110)
[2018-01-28] MEDS: SENNA 8.6 MG TAB (SENOKOT) PO (20:38)
[2018-01-28] MEDS: traZODone 50 MG TAB PO (20:38)
[2018-01-28] MEDS: ACETAMINOPHEN TAB 650MG DOSE (2X325MG) PO (20:38)
[2018-01-28] MEDS: **NOTE PATIENT COMMENT** MISC XX (20:38)
[2018-01-28 20:53] LABS: BEDSIDE GLUCOSE 131 MG/DL (83-110)
[2018-01-29] MEDS ORDERED: APIXABAN 5 MG TAB (ELIQUIS) PO (06:00)
[2018-01-29 06:23] LABS: BASO % 0.2 % (0.0-1.0); EOS # 0.1 10^3/uL (0.0-0.50); EOS % 0.4 % (0.0-3.0); HEMOGLOBIN 8.6 g/dl (13.5-17.5); IMMATURE GRANULOCYTE % 1.1 % (0-3.0); LYMPH # 1.3 10^3/uL (1.5-4.5); LYMPH % 8.1 % (24.0-44.0); MEAN CORPUSCULAR HEMOGLOBIN 28.7 pg (27.0-33.0); MEAN CORPUSCULAR HGB CONC 33.1 g/dl (32.0-36.5); MEAN CORPUSCULAR VOLUME 86.7 fl (80.0-96.0); MONO # 1.1 10^3/uL (0.0-0.8); MONO % 6.5 % (0.0-5.0); NEUTROPHILS # 13.8 10^3/uL (1.8-7.7); NEUTROPHILS % 83.7 % (36.0-66.0); PLATELET COUNT, AUTOMATED 253 10^3/uL (150-450); WHITE BLOOD COUNT 16.5 10^3/uL (4.0-10.0)
[2018-01-29 06:39] LABS: BEDSIDE GLUCOSE 137 MG/DL (83-110)
[2018-01-29 06:47] LABS: ERYTHROCYTE SEDIMENTATION RATE 128 mm/hr (0-20)
[2018-01-29] MEDS: HumaLOG INSULIN (NovoLOG) PER UNIT SC ×3 (07:30→17:02)
[2018-01-29] MEDS: METHYLPHENIDATE 5 MG TAB PO ×2 (08:00→13:41)
[2018-01-29] MEDS ORDERED: LIDOCAINE 1% MDV 20ML VIAL As Ordered ×2 (09:37→09:39)
[2018-01-29] MEDS: MAGNESIUM GLUCONATE 500 MG TAB PO ×2 (11:20→20:59)
[2018-01-29] MEDS: MEGESTROL ES SUSP 625 MG/5 ML UDC PO (11:20)
[2018-01-29] MEDS: LEVEMIR (INSULIN DETEMIR) 1 UNITS/0.01ML SC (11:20)
[2018-01-29] MEDS: diltiaZEM **CD** 180 MG CAP PO ×2 (11:21→20:58)
[2018-01-29] MEDS: LACTOBACILLUS ACIDOPHILUS CAP (BACID) PO ×2 (11:21→20:58)
[2018-01-29] MEDS: FLUoxetine 20 MG CAP PO (11:21)
[2018-01-29] MEDS: DIGOXIN 0.125 MG TAB PO (11:21)
[2018-01-29] MEDS: FERROUS SULFATE 325MG TAB PO ×2 (11:22→20:58)
[2018-01-29] MEDS: MULTIVITAMINS/MINERALS THERAP 1 TAB PO (11:22)
[2018-01-29] MEDS: LISINOPRIL 20 MG TAB PO ×2 (11:22→20:58)
[2018-01-29] MEDS: METOPROLOL TARTRATE 100 MG TAB PO ×2 (11:23→20:59)
[2018-01-29] MEDS: LIDOCAINE 5% (LIDODERM) PATCH TD (11:23)
[2018-01-29] MEDS: AMIODARONE 200 MG TAB (PACERONE) PO (11:23)
[2018-01-29 12:10] LABS: BEDSIDE GLUCOSE 180 MG/DL (83-110)
[2018-01-29] MEDS: cefTRIAXone SOD 1 GM in D5W MINI-BAG PLUS 50 ML IV (12:40)
[2018-01-29] MEDS: NS 1,000 ML IV (12:40)
[2018-01-29] MEDS: ERTAPENEM SODIUM 1 GM in NS MINI-BAG PLUS 50 ML IV (16:39)
[2018-01-29] MEDS: FLUCONAZOLE 100 MG TAB PO (16:40)
[2018-01-29 17:00] LABS: BEDSIDE GLUCOSE 137 MG/DL (83-110)
[2018-01-29] MEDS: APIXABAN 5 MG TAB (ELIQUIS) PO (20:58)
[2018-01-29] MEDS: **NOTE PATIENT COMMENT** MISC XX (21:00)
[2018-01-29 21:23] LABS: BEDSIDE GLUCOSE 110 MG/DL (83-110)
[2018-01-30 06:21] LABS: HEMATOCRIT 24.2 % (42.0-52.0); MEAN CORPUSCULAR HEMOGLOBIN 28.8 pg (27.0-33.0); MEAN CORPUSCULAR HGB CONC 33.1 g/dl (32.0-36.5); MEAN CORPUSCULAR VOLUME 87.1 fl (80.0-96.0); PLATELET COUNT, AUTOMATED 257 10^3/uL (150-450); RED BLOOD COUNT 2.78 10^6/uL (4.30-6.10); RED CELL DISTRIBUTION WIDTH 16.1 % (11.5-14.5); WHITE BLOOD COUNT 13.8 10^3/uL (4.0-10.0)
[2018-01-30 06:41] LABS: ERYTHROCYTE SEDIMENTATION RATE 126 mm/hr (0-20)
[2018-01-30 06:58] LABS: ALBUMIN 1.9 GM/DL (3.2-5.2); ALKALINE PHOSPHATASE 82 U/L (45-117); ALT/SGPT 18 U/L (12-78); ANION GAP 7 MEQ/L (8-16); AST/SGOT 14 U/L (7-37); BILIRUBIN,TOTAL 0.4 MG/DL (0.2-1.0); BLOOD UREA NITROGEN 15 MG/DL (7-18); CALCIUM LEVEL 8.6 MG/DL (8.8-10.2); CARBON DIOXIDE LEVEL 25 MEQ/L (21-32); CHLORIDE LEVEL 106 MEQ/L (98-107); CREATININE FOR GFR 0.94 MG/DL (0.70-1.30); GLOMERULAR FILTRATION RATE > 60.0 (>42); GLUCOSE, FASTING 74 MG/DL (70-100); SODIUM LEVEL 138 MEQ/L (136-145); TOTAL PROTEIN 6.7 GM/DL (6.4-8.2)
[2018-01-30] MEDS: HumaLOG INSULIN (NovoLOG) PER UNIT SC ×3 (07:50→17:45)
[2018-01-30] MEDS: LIDOCAINE 5% (LIDODERM) PATCH TD (08:30)
[2018-01-30] MEDS: MEGESTROL ES SUSP 625 MG/5 ML UDC PO (08:30)
[2018-01-30] MEDS: METOPROLOL TARTRATE 100 MG TAB PO ×2 (08:30→20:53)
[2018-01-30] MEDS: MULTIVITAMINS/MINERALS THERAP 1 TAB PO (08:31)
[2018-01-30] MEDS: FERROUS SULFATE 325MG TAB PO ×2 (08:31→20:53)
[2018-01-30] MEDS: AMIODARONE 200 MG TAB (PACERONE) PO (08:31)
[2018-01-30] MEDS: LACTOBACILLUS ACIDOPHILUS CAP (BACID) PO ×2 (08:32→20:54)
[2018-01-30] MEDS: APIXABAN 5 MG TAB (ELIQUIS) PO ×2 (08:32→20:54)
[2018-01-30] MEDS: METHYLPHENIDATE 5 MG TAB PO ×2 (08:32→14:25)
[2018-01-30] MEDS: diltiaZEM **CD** 180 MG CAP PO ×2 (08:32→20:53)
[2018-01-30] MEDS: FLUCONAZOLE 100 MG TAB PO (08:32)
[2018-01-30] MEDS: FLUoxetine 20 MG CAP PO (08:32)
[2018-01-30] MEDS: DIGOXIN 0.125 MG TAB PO (08:32)
[2018-01-30] MEDS: LISINOPRIL 20 MG TAB PO ×2 (08:32→20:54)
[2018-01-30] MEDS: MAGNESIUM GLUCONATE 500 MG TAB PO ×2 (08:33→20:54)
[2018-01-30] MEDS: LEVEMIR (INSULIN DETEMIR) 1 UNITS/0.01ML SC (08:33)
[2018-01-30 11:41] LABS: BEDSIDE GLUCOSE 242 MG/DL (83-110)
[2018-01-30 16:45] LABS: BEDSIDE GLUCOSE 203 MG/DL (83-110)
[2018-01-30] MEDS: ERTAPENEM SODIUM 1 GM in NS MINI-BAG PLUS 50 ML IV (17:45)
[2018-01-30 20:08] LABS: BEDSIDE GLUCOSE 182 MG/DL (83-110)
[2018-01-30] MEDS: **NOTE PATIENT COMMENT** MISC XX (20:54)
[2018-01-31] MEDS: HumaLOG INSULIN (NovoLOG) PER UNIT SC ×3 (06:11→17:53)
[2018-01-31 06:15] LABS: BEDSIDE GLUCOSE 118 MG/DL (83-110)
[2018-01-31] MEDS: LEVEMIR (INSULIN DETEMIR) 1 UNITS/0.01ML SC (08:48)
[2018-01-31] MEDS: FERROUS SULFATE 325MG TAB PO ×2 (08:48→20:49)
[2018-01-31] MEDS: METHYLPHENIDATE 5 MG TAB PO ×2 (08:48→13:16)
[2018-01-31] MEDS: LACTOBACILLUS ACIDOPHILUS CAP (BACID) PO ×2 (08:48→20:48)
[2018-01-31] MEDS: FLUoxetine 20 MG CAP PO (08:48)
[2018-01-31] MEDS: MULTIVITAMINS/MINERALS THERAP 1 TAB PO (08:48)
[2018-01-31] MEDS: MEGESTROL ES SUSP 625 MG/5 ML UDC PO (08:48)
[2018-01-31] MEDS: diltiaZEM **CD** 180 MG CAP PO ×2 (08:49→20:49)
[2018-01-31] MEDS: AMIODARONE 200 MG TAB (PACERONE) PO (08:49)
[2018-01-31] MEDS: LISINOPRIL 20 MG TAB PO ×2 (08:49→20:49)
[2018-01-31] MEDS: FLUCONAZOLE 100 MG TAB PO (08:49)
[2018-01-31] MEDS: MAGNESIUM GLUCONATE 500 MG TAB PO ×2 (08:49→20:48)
[2018-01-31] MEDS: DIGOXIN 0.125 MG TAB PO (08:50)
[2018-01-31] MEDS: METOPROLOL TARTRATE 100 MG TAB PO ×2 (08:50→20:49)
[2018-01-31] MEDS: LIDOCAINE 5% (LIDODERM) PATCH TD (08:50)
[2018-01-31] MEDS: APIXABAN 5 MG TAB (ELIQUIS) PO ×2 (08:50→20:49)
[2018-01-31 11:44] LABS: BEDSIDE GLUCOSE 237 MG/DL (83-110)
[2018-01-31 16:56] LABS: BEDSIDE GLUCOSE 278 MG/DL (83-110)
[2018-01-31] MEDS: ERTAPENEM SODIUM 1 GM in NS MINI-BAG PLUS 50 ML IV (17:53)
[2018-01-31 20:34] LABS: BEDSIDE GLUCOSE 229 MG/DL (83-110)
[2018-01-31] MEDS: **NOTE PATIENT COMMENT** MISC XX (20:50)
[2018-01-31] MEDS: CHLORHEXIDINE ORAL RINSE 0.12%/15ML 120ML BOTTLE MT (20:50)
[2018-01-31] MEDS: traZODone 50 MG TAB PO (21:08)
[2018-02-01 06:18] LABS: BASO % 0.3 % (0.0-1.0); EOS # 0.1 10^3/uL (0.0-0.50); EOS % 0.5 % (0.0-3.0); HEMATOCRIT 24.4 % (42.0-52.0); IMMATURE GRANULOCYTE % 1.2 % (0-3.0); LYMPH # 1.8 10^3/uL (1.5-4.5); LYMPH % 17.9 % (24.0-44.0); MEAN CORPUSCULAR HEMOGLOBIN 28.5 pg (27.0-33.0); MEAN CORPUSCULAR HGB CONC 32.8 g/dl (32.0-36.5); MEAN CORPUSCULAR VOLUME 86.8 fl (80.0-96.0); MONO # 0.6 10^3/uL (0.0-0.8); MONO % 6.3 % (0.0-5.0); NEUTROPHILS # 7.4 10^3/uL (1.8-7.7); NEUTROPHILS % 73.8 % (36.0-66.0); PLATELET COUNT, AUTOMATED 299 10^3/uL (150-450); RED BLOOD COUNT 2.81 10^6/uL (4.30-6.10); RED CELL DISTRIBUTION WIDTH 15.9 % (11.5-14.5)
[2018-02-01 06:38] LABS: ANION GAP 5 MEQ/L (8-16); BLOOD UREA NITROGEN 17 MG/DL (7-18); CALCIUM LEVEL 8.9 MG/DL (8.8-10.2); CARBON DIOXIDE LEVEL 27 MEQ/L (21-32); CHLORIDE LEVEL 103 MEQ/L (98-107); CREATININE FOR GFR 1.07 MG/DL (0.70-1.30); GLOMERULAR FILTRATION RATE > 60.0 (>42); GLUCOSE, FASTING 156 MG/DL (70-100); POTASSIUM SERUM 4.3 MEQ/L (3.5-5.1); SODIUM LEVEL 135 MEQ/L (136-145)
[2018-02-01] MEDS: diltiaZEM **CD** 180 MG CAP PO ×2 (08:39→21:05)
[2018-02-01] MEDS: APIXABAN 5 MG TAB (ELIQUIS) PO ×2 (08:39→21:05)
[2018-02-01] MEDS: MAGNESIUM GLUCONATE 500 MG TAB PO ×2 (08:39→21:05)
[2018-02-01] MEDS: MEGESTROL ES SUSP 625 MG/5 ML UDC PO (08:39)
[2018-02-01] MEDS: FLUoxetine 20 MG CAP PO (08:39)
[2018-02-01] MEDS: METHYLPHENIDATE 5 MG TAB PO (08:40)
[2018-02-01] MEDS: METOPROLOL TARTRATE 100 MG TAB PO ×2 (08:40→21:05)
[2018-02-01] MEDS: AMIODARONE 200 MG TAB (PACERONE) PO (08:40)
[2018-02-01] MEDS: LIDOCAINE 5% (LIDODERM) PATCH TD (08:40)
[2018-02-01] MEDS: FLUCONAZOLE 100 MG TAB PO (08:40)
[2018-02-01] MEDS: FERROUS SULFATE 325MG TAB PO ×2 (08:41→21:05)
[2018-02-01] MEDS: LISINOPRIL 20 MG TAB PO ×2 (08:41→21:05)
[2018-02-01] MEDS: MULTIVITAMINS/MINERALS THERAP 1 TAB PO (08:41)
[2018-02-01] MEDS: LACTOBACILLUS ACIDOPHILUS CAP (BACID) PO ×2 (08:41→21:04)
[2018-02-01] MEDS: DIGOXIN 0.125 MG TAB PO (08:41)
[2018-02-01] MEDS: LEVEMIR (INSULIN DETEMIR) 1 UNITS/0.01ML SC (08:42)
[2018-02-01] MEDS: HumaLOG INSULIN (NovoLOG) PER UNIT SC ×3 (08:43→17:10)
[2018-02-01] MEDS: ACETAMINOPHEN TAB 650MG DOSE (2X325MG) PO (11:12)
[2018-02-01 11:48] LABS: BEDSIDE GLUCOSE 289 MG/DL (83-110)
[2018-02-01] MEDS ORDERED: SODIUM CHLORIDE 0.9% INJ 10 ML SYR IV (14:30)
[2018-02-01 15:30] LABS: C REACTIVE PROTEIN QUANTITATIV 6.32 MG/DL (0.00-0.30)
[2018-02-01 16:47] LABS: BEDSIDE GLUCOSE 188 MG/DL (83-110)
[2018-02-01] MEDS: SODIUM CHLORIDE 0.9% INJ 10 ML SYR IV (17:10)
[2018-02-01] MEDS: LevoFLOXacin 500 MG TABLET PO (17:10)
[2018-02-01 20:30] LABS: BEDSIDE GLUCOSE 278 MG/DL (83-110)
[2018-02-01] MEDS: **NOTE PATIENT COMMENT** MISC XX (21:00)
[2018-02-01] MEDS: CHLORHEXIDINE ORAL RINSE 0.12%/15ML 120ML BOTTLE MT (21:03)
[2018-02-02] MEDS: LevoFLOXacin 500 MG TABLET PO (05:03)
[2018-02-02] MEDS: SODIUM CHLORIDE 0.9% INJ 10 ML SYR IV ×2 (05:04→17:26)
[2018-02-02] MEDS: ACETAMINOPHEN TAB 650MG DOSE (2X325MG) PO (05:04)
[2018-02-02 07:03] LABS: BEDSIDE GLUCOSE 134 MG/DL (83-110)
[2018-02-02] MEDS ORDERED: ISOVUE-370 76% 100ML VIAL (Q9967) As Ordered (07:03)
[2018-02-02] MEDS: MEGESTROL ES SUSP 625 MG/5 ML UDC PO (08:55)
[2018-02-02] MEDS: LACTOBACILLUS ACIDOPHILUS CAP (BACID) PO ×2 (08:56→21:34)
[2018-02-02] MEDS: diltiaZEM **CD** 180 MG CAP PO ×2 (08:56→21:39)
[2018-02-02] MEDS: FLUoxetine 20 MG CAP PO (08:56)
[2018-02-02] MEDS: FLUCONAZOLE 100 MG TAB PO (08:57)
[2018-02-02] MEDS: FERROUS SULFATE 325MG TAB PO ×2 (08:57→21:35)
[2018-02-02] MEDS: DIGOXIN 0.125 MG TAB PO (08:58)
[2018-02-02] MEDS: LISINOPRIL 20 MG TAB PO ×2 (08:58→21:38)
[2018-02-02] MEDS: MAGNESIUM GLUCONATE 500 MG TAB PO ×2 (08:58→21:35)
[2018-02-02] MEDS: AMIODARONE 200 MG TAB (PACERONE) PO (08:58)
[2018-02-02] MEDS: APIXABAN 5 MG TAB (ELIQUIS) PO ×2 (08:59→21:35)
[2018-02-02] MEDS: MULTIVITAMINS/MINERALS THERAP 1 TAB PO (08:59)
[2018-02-02] MEDS: METHYLPHENIDATE 5 MG TAB PO (09:00)
[2018-02-02] MEDS: METOPROLOL TARTRATE 100 MG TAB PO ×2 (09:00→21:38)
[2018-02-02] MEDS: LIDOCAINE 5% (LIDODERM) PATCH TD (09:01)
[2018-02-02] MEDS: LEVEMIR (INSULIN DETEMIR) 1 UNITS/0.01ML SC (09:02)
[2018-02-02] MEDS: HumaLOG INSULIN (NovoLOG) PER UNIT SC ×3 (09:02→17:28)
[2018-02-02 12:08] LABS: BEDSIDE GLUCOSE 196 MG/DL (83-110)
[2018-02-02] MEDS: NS 1,000 ML IV (12:43)
[2018-02-02 15:18] LABS: KETONE, URINE AUTO RFX NEGATIVE (NEGATIVE); LEUKOCYTE ESTERASE UR AUTO RFX 2+ (NEGATIVE); MUCUS, URINE RFX SMALL (NEGATIVE); NITRITE, URINE AUTO RFX NEGATIVE (NEGATIVE); RBC, URINE AUTO RFX TNTC /HPF (0-3); SPECIFIC GRAVITY UR AUTO RFX 1.055 (1.002-1.035); SQUAM EPITHELIAL CELL UR AURFX 0 /HPF (0-6); WBC, URINE AUTO RFX TNTC /HPF (0-3)
[2018-02-02 17:31] LABS: BEDSIDE GLUCOSE 186 MG/DL (83-110)
[2018-02-02] MEDS: **NOTE PATIENT COMMENT** MISC XX (21:00)
[2018-02-02 21:04] LABS: BEDSIDE GLUCOSE 275 MG/DL (83-110)
[2018-02-02] MEDS: traZODone 100 MG TAB PO (21:36)
[2018-02-02] MEDS: CHLORHEXIDINE ORAL RINSE 0.12%/15ML 120ML BOTTLE MT (21:36)
[2018-02-03] MEDS: NS 1,000 ML IV (03:57)
[2018-02-03] MEDS: SODIUM CHLORIDE 0.9% INJ 10 ML SYR IV ×2 (06:00→18:16)
[2018-02-03] MEDS: LevoFLOXacin 500 MG TABLET PO (06:46)
[2018-02-03 07:02] LABS: HEMATOCRIT 22.8 % (42.0-52.0); HEMOGLOBIN 8.1 g/dl (13.5-17.5); MEAN CORPUSCULAR HEMOGLOBIN 31.9 pg (27.0-33.0); MEAN CORPUSCULAR HGB CONC 35.5 g/dl (32.0-36.5); MEAN CORPUSCULAR VOLUME 89.8 fl (80.0-96.0); PLATELET COUNT, AUTOMATED 286 10^3/uL (150-450); RED BLOOD COUNT 2.54 10^6/uL (4.30-6.10); RED CELL DISTRIBUTION WIDTH 16.4 % (11.5-14.5); WHITE BLOOD COUNT 15.8 10^3/uL (4.0-10.0)
[2018-02-03 07:40] LABS: ALKALINE PHOSPHATASE 82 U/L (45-117); ALT/SGPT 28 U/L (12-78); ANION GAP 8 MEQ/L (8-16); AST/SGOT 15 U/L (7-37); BILIRUBIN,TOTAL 0.5 MG/DL (0.2-1.0); BLOOD UREA NITROGEN 18 MG/DL (7-18); CALCIUM LEVEL 8.6 MG/DL (8.8-10.2); CARBON DIOXIDE LEVEL 25 MEQ/L (21-32); CHLORIDE LEVEL 105 MEQ/L (98-107); CREATININE FOR GFR 1.07 MG/DL (0.70-1.30); GLOMERULAR FILTRATION RATE > 60.0 (>42); GLUCOSE, FASTING 111 MG/DL (70-100); POTASSIUM SERUM 4.8 MEQ/L (3.5-5.1); SODIUM LEVEL 138 MEQ/L (136-145)
[2018-02-03] MEDS: LEVEMIR (INSULIN DETEMIR) 1 UNITS/0.01ML SC (08:54)
[2018-02-03] MEDS: LIDOCAINE 5% (LIDODERM) PATCH TD (08:54)
[2018-02-03] MEDS: MAGNESIUM GLUCONATE 500 MG TAB PO ×2 (08:55→20:46)
[2018-02-03] MEDS: diltiaZEM **CD** 180 MG CAP PO ×2 (08:55→20:47)
[2018-02-03] MEDS: AMIODARONE 200 MG TAB (PACERONE) PO (08:55)
[2018-02-03] MEDS: MEGESTROL ES SUSP 625 MG/5 ML UDC PO (08:55)
[2018-02-03] MEDS: FLUCONAZOLE 100 MG TAB PO (08:55)
[2018-02-03] MEDS: APIXABAN 5 MG TAB (ELIQUIS) PO ×2 (08:55→20:46)
[2018-02-03] MEDS: MULTIVITAMINS/MINERALS THERAP 1 TAB PO (08:56)
[2018-02-03] MEDS: LACTOBACILLUS ACIDOPHILUS CAP (BACID) PO ×2 (08:56→20:47)
[2018-02-03] MEDS: LISINOPRIL 20 MG TAB PO ×2 (08:56→20:47)
[2018-02-03] MEDS: METHYLPHENIDATE 5 MG TAB PO (08:56)
[2018-02-03] MEDS: FERROUS SULFATE 325MG TAB PO ×2 (08:56→20:46)
[2018-02-03] MEDS: DIGOXIN 0.125 MG TAB PO (08:56)
[2018-02-03] MEDS: METOPROLOL TARTRATE 100 MG TAB PO ×2 (08:56→20:47)
[2018-02-03] MEDS: FLUoxetine 20 MG CAP PO (08:56)
[2018-02-03] MEDS: HumaLOG INSULIN (NovoLOG) PER UNIT SC ×3 (08:57→18:15)
[2018-02-03] MEDS ORDERED: FLUoxetine 20 MG CAP PO (09:00)
[2018-02-03] MEDS: LINEZOLID 600MG TABLET (ZYVOX) PO ×2 (12:26→20:46)
[2018-02-03 12:32] LABS: BEDSIDE GLUCOSE 279 MG/DL (83-110)
[2018-02-03 17:04] LABS: BEDSIDE GLUCOSE 269 MG/DL (83-110)
[2018-02-03 20:14] LABS: BEDSIDE GLUCOSE 232 MG/DL (83-110)
[2018-02-03] MEDS: traZODone 100 MG TAB PO (20:46)
[2018-02-03] MEDS: **NOTE PATIENT COMMENT** MISC XX (20:48)
[2018-02-04 06:06] LABS: BEDSIDE GLUCOSE 173 MG/DL (83-110)
[2018-02-04] MEDS: LevoFLOXacin 500 MG TABLET PO (06:14)
[2018-02-04] MEDS: LEVEMIR (INSULIN DETEMIR) 1 UNITS/0.01ML SC (06:14)
[2018-02-04] MEDS ORDERED: SLF 3 ML SYR IV (06:30)
[2018-02-04 06:50] LABS: HEMATOCRIT 24.8 % (42.0-52.0); HEMOGLOBIN 8.1 g/dl (13.5-17.5); MEAN CORPUSCULAR HEMOGLOBIN 28.6 pg (27.0-33.0); MEAN CORPUSCULAR HGB CONC 32.7 g/dl (32.0-36.5); MEAN CORPUSCULAR VOLUME 87.6 fl (80.0-96.0); PLATELET COUNT, AUTOMATED 278 10^3/uL (150-450); RED BLOOD COUNT 2.83 10^6/uL (4.30-6.10); RED CELL DISTRIBUTION WIDTH 16.3 % (11.5-14.5); WHITE BLOOD COUNT 12.4 10^3/uL (4.0-10.0)
[2018-02-04 07:10] LABS: ALBUMIN/GLOBULIN RATIO 0.43 (1.00-1.93); ALKALINE PHOSPHATASE 77 U/L (45-117); ALT/SGPT 22 U/L (12-78); ANION GAP 5 MEQ/L (8-16); AST/SGOT 14 U/L (7-37); BILIRUBIN,TOTAL 0.4 MG/DL (0.2-1.0); BLOOD UREA NITROGEN 19 MG/DL (7-18); C REACTIVE PROTEIN QUANTITATIV 9.61 MG/DL (0.00-0.30); CALCIUM LEVEL 8.9 MG/DL (8.8-10.2); CARBON DIOXIDE LEVEL 27 MEQ/L (21-32); CHLORIDE LEVEL 104 MEQ/L (98-107); CREATININE FOR GFR 1.19 MG/DL (0.70-1.30); GLOMERULAR FILTRATION RATE > 60.0 (>42); GLUCOSE, FASTING 137 MG/DL (70-100); POTASSIUM SERUM 4.5 MEQ/L (3.5-5.1); SODIUM LEVEL 136 MEQ/L (136-145); TOTAL PROTEIN 6.6 GM/DL (6.4-8.2)
[2018-02-04] MEDS: HumaLOG INSULIN (NovoLOG) PER UNIT SC ×3 (07:30→18:02)
[2018-02-04] MEDS: MEGESTROL ES SUSP 625 MG/5 ML UDC PO (09:04)
[2018-02-04] MEDS: METHYLPHENIDATE 5 MG TAB PO (09:05)
[2018-02-04] MEDS: diltiaZEM **CD** 180 MG CAP PO ×2 (09:05→21:00)
[2018-02-04] MEDS: AMIODARONE 200 MG TAB (PACERONE) PO (09:05)
[2018-02-04] MEDS: LINEZOLID 600MG TABLET (ZYVOX) PO ×2 (09:05→21:13)
[2018-02-04] MEDS: DIGOXIN 0.125 MG TAB PO (09:05)
[2018-02-04] MEDS: FLUoxetine 20 MG CAP PO (09:05)
[2018-02-04] MEDS: LACTOBACILLUS ACIDOPHILUS CAP (BACID) PO ×2 (09:06→21:13)
[2018-02-04] MEDS: MAGNESIUM GLUCONATE 500 MG TAB PO ×2 (09:06→21:13)
[2018-02-04] MEDS: LISINOPRIL 20 MG TAB PO ×2 (09:06→21:13)
[2018-02-04] MEDS: FLUCONAZOLE 100 MG TAB PO (09:06)
[2018-02-04] MEDS: METOPROLOL TARTRATE 100 MG TAB PO ×2 (09:07→21:00)
[2018-02-04] MEDS: FERROUS SULFATE 325MG TAB PO ×2 (09:07→21:13)
[2018-02-04] MEDS: APIXABAN 5 MG TAB (ELIQUIS) PO ×2 (09:07→21:13)
[2018-02-04] MEDS: LIDOCAINE 5% (LIDODERM) PATCH TD (09:07)
[2018-02-04] MEDS: MULTIVITAMINS/MINERALS THERAP 1 TAB PO (09:07)
[2018-02-04 11:27] LABS: BEDSIDE GLUCOSE 208 MG/DL (83-110)
[2018-02-04] MEDS: SLF 3 ML SYR IV ×2 (12:34→21:14)
[2018-02-04 16:33] LABS: KETONE, URINE AUTO RFX NEGATIVE (NEGATIVE); NITRITE, URINE AUTO RFX NEGATIVE (NEGATIVE); RBC, URINE AUTO RFX TNTC /HPF (0-3); SQUAM EPITHELIAL CELL UR AURFX 0 /HPF (0-6); TRANSITIONAL EPITHELIAL AU RFX 3 /HPF
[2018-02-04 16:35] LABS: LEUKOCYTE ESTERASE UR AUTO RFX 2+ (NEGATIVE); WBC, URINE AUTO RFX TNTC /HPF (0-3)
[2018-02-04 17:03] LABS: BEDSIDE GLUCOSE 334 MG/DL (83-110)
[2018-02-04 20:50] LABS: BEDSIDE GLUCOSE 381 MG/DL (83-110)
[2018-02-04] MEDS: **NOTE PATIENT COMMENT** MISC XX (21:00)
[2018-02-04] MEDS: traZODone 100 MG TAB PO (21:13)
[2018-02-05 06:11] LABS: BEDSIDE GLUCOSE 200 MG/DL (83-110)
[2018-02-05] MEDS: SLF 3 ML SYR IV ×3 (06:17→21:18)
[2018-02-05] MEDS: LEVEMIR (INSULIN DETEMIR) 1 UNITS/0.01ML SC (06:17)
[2018-02-05] MEDS: LevoFLOXacin 500 MG TABLET PO (06:17)
[2018-02-05] MEDS: LIDOCAINE 5% (LIDODERM) PATCH TD (09:22)
[2018-02-05] MEDS: MEGESTROL ES SUSP 625 MG/5 ML UDC PO (09:22)
[2018-02-05] MEDS: METHYLPHENIDATE 5 MG TAB PO (09:22)
[2018-02-05] MEDS: FERROUS SULFATE 325MG TAB PO ×2 (09:23→21:15)
[2018-02-05] MEDS: AMIODARONE 200 MG TAB (PACERONE) PO (09:23)
[2018-02-05] MEDS: FLUCONAZOLE 100 MG TAB PO (09:23)
[2018-02-05] MEDS: LACTOBACILLUS ACIDOPHILUS CAP (BACID) PO ×2 (09:23→21:14)
[2018-02-05] MEDS: METOPROLOL TARTRATE 100 MG TAB PO ×2 (09:23→21:15)
[2018-02-05] MEDS: APIXABAN 5 MG TAB (ELIQUIS) PO ×2 (09:23→21:15)
[2018-02-05] MEDS: diltiaZEM **CD** 180 MG CAP PO ×2 (09:23→21:15)
[2018-02-05] MEDS: LINEZOLID 600MG TABLET (ZYVOX) PO ×2 (09:23→21:14)
[2018-02-05] MEDS: FLUoxetine 20 MG CAP PO (09:23)
[2018-02-05] MEDS: LISINOPRIL 20 MG TAB PO ×2 (09:24→21:15)
[2018-02-05] MEDS: DIGOXIN 0.125 MG TAB PO (09:24)
[2018-02-05] MEDS: MULTIVITAMINS/MINERALS THERAP 1 TAB PO (09:24)
[2018-02-05] MEDS: HumaLOG INSULIN (NovoLOG) PER UNIT SC ×3 (09:25→18:12)
[2018-02-05] MEDS: MAGNESIUM GLUCONATE 500 MG TAB PO ×2 (09:25→21:14)
[2018-02-05 12:21] LABS: BEDSIDE GLUCOSE 244 MG/DL (83-110)
[2018-02-05 20:32] LABS: BEDSIDE GLUCOSE 222 MG/DL (83-110)
[2018-02-05] MEDS: traZODone 100 MG TAB PO (21:14)
[2018-02-05] MEDS: ACETAMINOPHEN TAB 650MG DOSE (2X325MG) PO (21:18)
[2018-02-05] MEDS: **NOTE PATIENT COMMENT** MISC XX (21:19)
[2018-02-06] MEDS: SLF 3 ML SYR IV ×3 (05:29→21:57)
[2018-02-06] MEDS: LevoFLOXacin 500 MG TABLET PO (05:30)
[2018-02-06 07:24] LABS: BEDSIDE GLUCOSE 143 MG/DL (83-110)
[2018-02-06] MEDS: HumaLOG INSULIN (NovoLOG) PER UNIT SC ×3 (07:30→16:55)
[2018-02-06] MEDS: FLUoxetine 20 MG CAP PO (08:51)
[2018-02-06] MEDS: MAGNESIUM GLUCONATE 500 MG TAB PO ×2 (08:51→21:53)
[2018-02-06] MEDS: METHYLPHENIDATE 5 MG TAB PO (08:52)
[2018-02-06] MEDS: FERROUS SULFATE 325MG TAB PO ×2 (08:52→21:54)
[2018-02-06] MEDS: METOPROLOL TARTRATE 100 MG TAB PO ×2 (08:52→21:55)
[2018-02-06] MEDS: DIGOXIN 0.125 MG TAB PO (08:52)
[2018-02-06] MEDS: FLUCONAZOLE 100 MG TAB PO (08:53)
[2018-02-06] MEDS: AMIODARONE 200 MG TAB (PACERONE) PO (08:53)
[2018-02-06] MEDS: LINEZOLID 600MG TABLET (ZYVOX) PO ×2 (08:53→21:54)
[2018-02-06] MEDS: LEVEMIR (INSULIN DETEMIR) 1 UNITS/0.01ML SC (08:53)
[2018-02-06] MEDS: MULTIVITAMINS/MINERALS THERAP 1 TAB PO (08:53)
[2018-02-06] MEDS: APIXABAN 5 MG TAB (ELIQUIS) PO ×2 (08:53→21:54)
[2018-02-06] MEDS: LACTOBACILLUS ACIDOPHILUS CAP (BACID) PO ×2 (08:53→21:56)
[2018-02-06] MEDS: diltiaZEM **CD** 180 MG CAP PO ×2 (08:53→21:55)
[2018-02-06] MEDS: MEGESTROL ES SUSP 625 MG/5 ML UDC PO (08:53)
[2018-02-06] MEDS: LISINOPRIL 20 MG TAB PO ×2 (08:54→21:56)
[2018-02-06] MEDS: LIDOCAINE 5% (LIDODERM) PATCH TD (08:54)
[2018-02-06 11:58] LABS: BEDSIDE GLUCOSE 183 MG/DL (83-110)
[2018-02-06 12:44] LABS: HEMATOCRIT 28.3 % (42.0-52.0); HEMOGLOBIN 9.1 g/dl (13.5-17.5)
[2018-02-06 16:53] LABS: BEDSIDE GLUCOSE 103 MG/DL (83-110)
[2018-02-06 20:27] LABS: BEDSIDE GLUCOSE 120 MG/DL (83-110)
[2018-02-06] MEDS: traZODone 100 MG TAB PO (21:54)
[2018-02-06] MEDS: ACETAMINOPHEN TAB 650MG DOSE (2X325MG) PO (21:55)
[2018-02-06] MEDS: **NOTE PATIENT COMMENT** MISC XX (21:56)
[2018-02-07] MEDS: SLF 3 ML SYR IV ×3 (06:00→20:20)
[2018-02-07] MEDS: LevoFLOXacin 500 MG TABLET PO (06:25)
[2018-02-07] MEDS: LEVEMIR (INSULIN DETEMIR) 1 UNITS/0.01ML SC (06:26)
[2018-02-07 06:28] LABS: BEDSIDE GLUCOSE 129 MG/DL (83-110)
[2018-02-07] MEDS: HumaLOG INSULIN (NovoLOG) PER UNIT SC ×3 (07:30→17:02)
[2018-02-07] MEDS: MULTIVITAMINS/MINERALS THERAP 1 TAB PO (09:21)
[2018-02-07] MEDS: FERROUS SULFATE 325MG TAB PO ×2 (09:21→20:17)
[2018-02-07] MEDS: METHYLPHENIDATE 5 MG TAB PO (09:21)
[2018-02-07] MEDS: LACTOBACILLUS ACIDOPHILUS CAP (BACID) PO ×2 (09:21→20:17)
[2018-02-07] MEDS: MEGESTROL ES SUSP 625 MG/5 ML UDC PO (09:21)
[2018-02-07] MEDS: FLUoxetine 20 MG CAP PO (09:21)
[2018-02-07] MEDS: APIXABAN 5 MG TAB (ELIQUIS) PO ×2 (09:21→20:16)
[2018-02-07] MEDS: AMIODARONE 200 MG TAB (PACERONE) PO (09:22)
[2018-02-07] MEDS: FLUCONAZOLE 100 MG TAB PO (09:22)
[2018-02-07] MEDS: MAGNESIUM GLUCONATE 500 MG TAB PO ×2 (09:22→20:17)
[2018-02-07] MEDS: LINEZOLID 600MG TABLET (ZYVOX) PO ×2 (09:22→20:17)
[2018-02-07] MEDS: DIGOXIN 0.125 MG TAB PO (09:25)
[2018-02-07] MEDS: diltiaZEM **CD** 180 MG CAP PO ×2 (09:25→20:18)
[2018-02-07] MEDS: LISINOPRIL 20 MG TAB PO ×2 (09:26→20:19)
[2018-02-07] MEDS: METOPROLOL TARTRATE 100 MG TAB PO ×2 (09:26→20:18)
[2018-02-07] MEDS: LIDOCAINE 5% (LIDODERM) PATCH TD (09:26)
[2018-02-07 11:45] LABS: BEDSIDE GLUCOSE 209 MG/DL (83-110)
[2018-02-07 16:59] LABS: BEDSIDE GLUCOSE 232 MG/DL (83-110)
[2018-02-07] MEDS: traZODone 100 MG TAB PO (20:17)
[2018-02-07] MEDS: ACETAMINOPHEN TAB 650MG DOSE (2X325MG) PO (20:18)
[2018-02-07] MEDS: **NOTE PATIENT COMMENT** MISC XX (20:19)
[2018-02-08] MEDS: SLF 3 ML SYR IV ×3 (06:00→21:18)
[2018-02-08] MEDS: LevoFLOXacin 500 MG TABLET PO (06:24)
[2018-02-08] MEDS: HumaLOG INSULIN (NovoLOG) PER UNIT SC ×3 (07:30→17:58)
[2018-02-08] MEDS: MAGNESIUM GLUCONATE 500 MG TAB PO ×2 (09:00→21:14)
[2018-02-08] MEDS: LISINOPRIL 20 MG TAB PO ×2 (09:00→21:16)
[2018-02-08] MEDS: LEVEMIR (INSULIN DETEMIR) 1 UNITS/0.01ML SC (09:36)
[2018-02-08] MEDS: APIXABAN 5 MG TAB (ELIQUIS) PO ×2 (09:37→21:15)
[2018-02-08] MEDS: MEGESTROL ES SUSP 625 MG/5 ML UDC PO (09:37)
[2018-02-08] MEDS: FERROUS SULFATE 325MG TAB PO ×2 (09:37→21:15)
[2018-02-08] MEDS: MULTIVITAMINS/MINERALS THERAP 1 TAB PO (09:37)
[2018-02-08] MEDS: FLUCONAZOLE 100 MG TAB PO (09:37)
[2018-02-08] MEDS: LACTOBACILLUS ACIDOPHILUS CAP (BACID) PO ×2 (09:38→21:14)
[2018-02-08] MEDS: METHYLPHENIDATE 5 MG TAB PO (09:38)
[2018-02-08] MEDS: FLUoxetine 20 MG CAP PO (09:38)
[2018-02-08] MEDS: LINEZOLID 600MG TABLET (ZYVOX) PO ×2 (09:38→21:15)
[2018-02-08] MEDS: AMIODARONE 200 MG TAB (PACERONE) PO (09:38)
[2018-02-08] MEDS: DIGOXIN 0.125 MG TAB PO (09:38)
[2018-02-08] MEDS: METOPROLOL TARTRATE 100 MG TAB PO ×2 (09:39→21:17)
[2018-02-08] MEDS: diltiaZEM **CD** 180 MG CAP PO ×2 (09:39→21:17)
[2018-02-08] MEDS: LIDOCAINE 5% (LIDODERM) PATCH TD (09:40)
[2018-02-08 11:49] LABS: BEDSIDE GLUCOSE > 600 MG/DL (83-110)
[2018-02-08 11:49] LABS: BEDSIDE GLUCOSE 346 MG/DL (83-110)
[2018-02-08 12:15] LABS: BASO % 0.3 % (0.0-1.0); EOS % 0.3 % (0.0-3.0); HEMATOCRIT 30.2 % (42.0-52.0); IMMATURE GRANULOCYTE % 1.5 % (0-3.0); LYMPH # 2.1 10^3/uL (1.5-4.5); LYMPH % 19.3 % (24.0-44.0); MEAN CORPUSCULAR HEMOGLOBIN 29.3 pg (27.0-33.0); MEAN CORPUSCULAR HGB CONC 33.1 g/dl (32.0-36.5); MEAN CORPUSCULAR VOLUME 88.6 fl (80.0-96.0); MONO # 0.7 10^3/uL (0.0-0.8); MONO % 6.6 % (0.0-5.0); NEUTROPHILS # 7.9 10^3/uL (1.8-7.7); PLATELET COUNT, AUTOMATED 398 10^3/uL (150-450); RED BLOOD COUNT 3.41 10^6/uL (4.30-6.10); RED CELL DISTRIBUTION WIDTH 16.9 % (11.5-14.5)
[2018-02-08 12:49] LABS: ALBUMIN 2.6 GM/DL (3.2-5.2); ALBUMIN/GLOBULIN RATIO 0.59 (1.00-1.93); ALKALINE PHOSPHATASE 84 U/L (45-117); ALT/SGPT 27 U/L (12-78); ANION GAP 8 MEQ/L (8-16); AST/SGOT 29 U/L (7-37); BILIRUBIN,TOTAL 0.4 MG/DL (0.2-1.0); BLOOD UREA NITROGEN 28 MG/DL (7-18); CALCIUM LEVEL 9.3 MG/DL (8.8-10.2); CARBON DIOXIDE LEVEL 24 MEQ/L (21-32); CHLORIDE LEVEL 105 MEQ/L (98-107); CREATININE FOR GFR 1.37 MG/DL (0.70-1.30); GLOMERULAR FILTRATION RATE 54.4 (>42); GLUCOSE, FASTING 178 MG/DL (70-100); SODIUM LEVEL 137 MEQ/L (136-145)
[2018-02-08 12:51] LABS: AMMONIA 30 uMOL/L (<32)
[2018-02-08 12:54] LABS: POTASSIUM SERUM 5.3 MEQ/L (3.5-5.1)
[2018-02-08] MEDS: NS 1,000 ML IV (15:37)
[2018-02-08] MEDS: **NOTE PATIENT COMMENT** MISC XX (21:00)
[2018-02-08] MEDS: traZODone 100 MG TAB PO (21:15)
[2018-02-09 04:21] LABS: BEDSIDE GLUCOSE 202 MG/DL (83-110)
[2018-02-09 04:21] LABS: BEDSIDE GLUCOSE 125 MG/DL (83-110)
[2018-02-09 04:21] LABS: BEDSIDE GLUCOSE 212 MG/DL (83-110)
[2018-02-09 04:21] LABS: BEDSIDE GLUCOSE 111 MG/DL (83-110)
[2018-02-09] MEDS: NS 1,000 ML IV ×2 (05:48→18:18)
[2018-02-09] MEDS: SLF 3 ML SYR IV ×3 (06:40→21:04)
[2018-02-09] MEDS: LevoFLOXacin 500 MG TABLET PO (06:40)
[2018-02-09 06:46] LABS: BASO % 0.1 % (0.0-1.0); EOS % 0.2 % (0.0-3.0); HEMATOCRIT 30.8 % (42.0-52.0); HEMOGLOBIN 9.9 g/dl (13.5-17.5); LYMPH # 1.8 10^3/uL (1.5-4.5); LYMPH % 13.4 % (24.0-44.0); MEAN CORPUSCULAR HEMOGLOBIN 28.9 pg (27.0-33.0); MEAN CORPUSCULAR HGB CONC 32.1 g/dl (32.0-36.5); MEAN CORPUSCULAR VOLUME 89.8 fl (80.0-96.0); MONO # 0.7 10^3/uL (0.0-0.8); MONO % 5.4 % (0.0-5.0); NEUTROPHILS # 10.9 10^3/uL (1.8-7.7); NEUTROPHILS % 79.9 % (36.0-66.0); PLATELET COUNT, AUTOMATED 335 10^3/uL (150-450); RED BLOOD COUNT 3.43 10^6/uL (4.30-6.10); RED CELL DISTRIBUTION WIDTH 16.8 % (11.5-14.5); WHITE BLOOD COUNT 13.7 10^3/uL (4.0-10.0)
[2018-02-09 06:52] LABS: BEDSIDE GLUCOSE 112 MG/DL (83-110)
[2018-02-09 07:08] LABS: ANION GAP 6 MEQ/L (8-16); BLOOD UREA NITROGEN 31 MG/DL (7-18); CALCIUM LEVEL 9.1 MG/DL (8.8-10.2); CARBON DIOXIDE LEVEL 24 MEQ/L (21-32); CHLORIDE LEVEL 107 MEQ/L (98-107); CREATININE FOR GFR 1.36 MG/DL (0.70-1.30); GLOMERULAR FILTRATION RATE 54.8 (>42); GLUCOSE, FASTING 107 MG/DL (70-100); POTASSIUM SERUM 4.9 MEQ/L (3.5-5.1); SODIUM LEVEL 137 MEQ/L (136-145)
[2018-02-09] MEDS: HumaLOG INSULIN (NovoLOG) PER UNIT SC ×3 (07:30→18:17)
[2018-02-09] MEDS: LEVEMIR (INSULIN DETEMIR) 1 UNITS/0.01ML SC (09:32)
[2018-02-09] MEDS: LIDOCAINE 5% (LIDODERM) PATCH TD (09:33)
[2018-02-09] MEDS: FLUoxetine 20 MG CAP PO (09:34)
[2018-02-09] MEDS: METHYLPHENIDATE 5 MG TAB PO (09:34)
[2018-02-09] MEDS: MULTIVITAMINS/MINERALS THERAP 1 TAB PO (09:34)
[2018-02-09] MEDS: diltiaZEM **CD** 180 MG CAP PO ×2 (09:34→21:00)
[2018-02-09] MEDS: FLUCONAZOLE 100 MG TAB PO (09:35)
[2018-02-09] MEDS: APIXABAN 5 MG TAB (ELIQUIS) PO ×2 (09:35→21:44)
[2018-02-09] MEDS: FERROUS SULFATE 325MG TAB PO ×2 (09:35→21:44)
[2018-02-09] MEDS: LINEZOLID 600MG TABLET (ZYVOX) PO ×2 (09:39→21:44)
[2018-02-09] MEDS: AMIODARONE 200 MG TAB (PACERONE) PO (09:39)
[2018-02-09] MEDS: LISINOPRIL 20 MG TAB PO ×2 (09:39→21:00)
[2018-02-09] MEDS: DIGOXIN 0.125 MG TAB PO (09:39)
[2018-02-09] MEDS: MAGNESIUM GLUCONATE 500 MG TAB PO ×2 (09:40→21:44)
[2018-02-09] MEDS: METOPROLOL TARTRATE 100 MG TAB PO ×2 (09:40→21:00)
[2018-02-09] MEDS: MEGESTROL ES SUSP 625 MG/5 ML UDC PO (09:42)
[2018-02-09] MEDS: LACTOBACILLUS ACIDOPHILUS CAP (BACID) PO ×2 (09:42→21:44)
[2018-02-09 11:50] LABS: BEDSIDE GLUCOSE 152 MG/DL (83-110)
[2018-02-09 11:55] LABS: BEDSIDE GLUCOSE 155 MG/DL (83-110)
[2018-02-09] MEDS: BISACODYL 5 MG TAB PO (13:28)
[2018-02-09] MEDS: traZODone 100 MG TAB PO (21:44)
[2018-02-09] MEDS: **NOTE PATIENT COMMENT** MISC XX (21:47)
[2018-02-10] MEDS: SLF 3 ML SYR IV ×3 (05:08→20:54)
[2018-02-10] MEDS: LevoFLOXacin 500 MG TABLET PO (05:34)
[2018-02-10 06:18] LABS: BEDSIDE GLUCOSE 187 MG/DL (83-110)
[2018-02-10 06:18] LABS: BEDSIDE GLUCOSE 207 MG/DL (83-110)
[2018-02-10] MEDS: NS 1,000 ML IV ×2 (06:44→19:35)
[2018-02-10 06:47] LABS: HEMATOCRIT 29.2 % (42.0-52.0); HEMOGLOBIN 9.5 g/dl (13.5-17.5); MEAN CORPUSCULAR HEMOGLOBIN 29.1 pg (27.0-33.0); MEAN CORPUSCULAR HGB CONC 32.5 g/dl (32.0-36.5); MEAN CORPUSCULAR VOLUME 89.6 fl (80.0-96.0); PLATELET COUNT, AUTOMATED 266 10^3/uL (150-450); RED BLOOD COUNT 3.26 10^6/uL (4.30-6.10); RED CELL DISTRIBUTION WIDTH 16.9 % (11.5-14.5); WHITE BLOOD COUNT 11.2 10^3/uL (4.0-10.0)
[2018-02-10 07:14] LABS: ALBUMIN 2.3 GM/DL (3.2-5.2); ALBUMIN/GLOBULIN RATIO 0.52 (1.00-1.93); ALKALINE PHOSPHATASE 74 U/L (45-117); ALT/SGPT 22 U/L (12-78); ANION GAP 7 MEQ/L (8-16); AST/SGOT 20 U/L (7-37); BILIRUBIN,TOTAL 0.4 MG/DL (0.2-1.0); BLOOD UREA NITROGEN 28 MG/DL (7-18); CALCIUM LEVEL 8.7 MG/DL (8.8-10.2); CARBON DIOXIDE LEVEL 22 MEQ/L (21-32); CHLORIDE LEVEL 109 MEQ/L (98-107); CREATININE FOR GFR 1.27 MG/DL (0.70-1.30); GLOMERULAR FILTRATION RATE 59.3 (>42); GLUCOSE, FASTING 119 MG/DL (70-100); POTASSIUM SERUM 4.5 MEQ/L (3.5-5.1); SODIUM LEVEL 138 MEQ/L (136-145); TOTAL PROTEIN 6.7 GM/DL (6.4-8.2)
[2018-02-10] MEDS: HumaLOG INSULIN (NovoLOG) PER UNIT SC ×3 (07:30→17:21)
[2018-02-10] MEDS: MAGNESIUM GLUCONATE 500 MG TAB PO ×2 (08:46→21:05)
[2018-02-10] MEDS: LEVEMIR (INSULIN DETEMIR) 1 UNITS/0.01ML SC (08:46)
[2018-02-10] MEDS: LACTOBACILLUS ACIDOPHILUS CAP (BACID) PO ×2 (08:46→21:05)
[2018-02-10] MEDS: LINEZOLID 600MG TABLET (ZYVOX) PO ×2 (08:46→21:05)
[2018-02-10] MEDS: AMIODARONE 200 MG TAB (PACERONE) PO (08:48)
[2018-02-10] MEDS: FLUCONAZOLE 100 MG TAB PO (08:50)
[2018-02-10] MEDS: APIXABAN 5 MG TAB (ELIQUIS) PO ×2 (08:50→21:05)
[2018-02-10] MEDS: diltiaZEM **CD** 180 MG CAP PO ×2 (08:50→20:54)
[2018-02-10] MEDS: FERROUS SULFATE 325MG TAB PO ×2 (08:51→21:05)
[2018-02-10] MEDS: LISINOPRIL 20 MG TAB PO ×2 (08:51→20:54)
[2018-02-10] MEDS: FLUoxetine 20 MG CAP PO (08:51)
[2018-02-10] MEDS: METHYLPHENIDATE 5 MG TAB PO (08:51)
[2018-02-10] MEDS: METOPROLOL TARTRATE 100 MG TAB PO ×2 (08:51→20:54)
[2018-02-10] MEDS: MULTIVITAMINS/MINERALS THERAP 1 TAB PO (08:51)
[2018-02-10] MEDS: LIDOCAINE 5% (LIDODERM) PATCH TD (08:52)
[2018-02-10] MEDS: MEGESTROL ES SUSP 625 MG/5 ML UDC PO (08:52)
[2018-02-10] MEDS: DIGOXIN 0.125 MG TAB PO (09:31)
[2018-02-10] MEDS: ACETAMINOPHEN TAB 650MG DOSE (2X325MG) PO ×2 (11:03→21:05)
[2018-02-10] MEDS: DRONABINOL 2.5 MG CAP (MARINOL) PO ×2 (12:22→17:21)
[2018-02-10 16:41] LABS: BEDSIDE GLUCOSE 206 MG/DL (83-110)
[2018-02-10 16:41] LABS: BEDSIDE GLUCOSE 168 MG/DL (83-110)
[2018-02-10] MEDS: **NOTE PATIENT COMMENT** MISC XX (20:55)
[2018-02-10] MEDS: traZODone 100 MG TAB PO (21:05)
[2018-02-11] MEDS: LevoFLOXacin 500 MG TABLET PO (05:58)
[2018-02-11] MEDS: SLF 3 ML SYR IV ×3 (05:59→20:37)
[2018-02-11 07:00] LABS: BEDSIDE GLUCOSE 123 MG/DL (83-110)
[2018-02-11 07:00] LABS: BEDSIDE GLUCOSE 146 MG/DL (83-110)
[2018-02-11] MEDS: HumaLOG INSULIN (NovoLOG) PER UNIT SC ×3 (07:30→17:30)
[2018-02-11] MEDS: LEVEMIR (INSULIN DETEMIR) 1 UNITS/0.01ML SC (08:18)
[2018-02-11] MEDS: DIGOXIN 0.125 MG TAB PO (08:19)
[2018-02-11] MEDS: LINEZOLID 600MG TABLET (ZYVOX) PO ×2 (08:19→20:36)
[2018-02-11] MEDS: FLUoxetine 20 MG CAP PO (08:19)
[2018-02-11] MEDS: METHYLPHENIDATE 5 MG TAB PO (08:19)
[2018-02-11] MEDS: APIXABAN 5 MG TAB (ELIQUIS) PO ×2 (08:19→20:36)
[2018-02-11] MEDS: MULTIVITAMINS/MINERALS THERAP 1 TAB PO (08:19)
[2018-02-11] MEDS: FERROUS SULFATE 325MG TAB PO ×2 (08:19→20:36)
[2018-02-11] MEDS: DRONABINOL 2.5 MG CAP (MARINOL) PO ×3 (08:19→17:49)
[2018-02-11] MEDS: LACTOBACILLUS ACIDOPHILUS CAP (BACID) PO ×2 (08:19→20:36)
[2018-02-11] MEDS: METOPROLOL TARTRATE 100 MG TAB PO ×2 (08:20→20:27)
[2018-02-11] MEDS: FLUCONAZOLE 100 MG TAB PO (08:20)
[2018-02-11] MEDS: MAGNESIUM GLUCONATE 500 MG TAB PO ×2 (08:20→20:36)
[2018-02-11] MEDS: AMIODARONE 200 MG TAB (PACERONE) PO (08:20)
[2018-02-11] MEDS: LIDOCAINE 5% (LIDODERM) PATCH TD (08:21)
[2018-02-11] MEDS: diltiaZEM **CD** 180 MG CAP PO ×2 (08:21→20:27)
[2018-02-11] MEDS: LISINOPRIL 20 MG TAB PO ×2 (08:21→20:28)
[2018-02-11] MEDS: NS 1,000 ML IV ×2 (09:16→21:31)
[2018-02-11 11:34] LABS: BEDSIDE GLUCOSE 123 MG/DL (83-110)
[2018-02-11 17:50] LABS: BEDSIDE GLUCOSE 125 MG/DL (83-110)
[2018-02-11 19:52] LABS: BEDSIDE GLUCOSE 69 MG/DL (83-110)
[2018-02-11] MEDS: traZODone 100 MG TAB PO (20:36)
[2018-02-11] MEDS: ACETAMINOPHEN TAB 650MG DOSE (2X325MG) PO (20:36)
[2018-02-11] MEDS: **NOTE PATIENT COMMENT** MISC XX (20:37)
[2018-02-12] MEDS: LevoFLOXacin 500 MG TABLET PO (05:28)
[2018-02-12] MEDS: SLF 3 ML SYR IV ×3 (05:29→21:01)
[2018-02-12 07:05] LABS: HEMATOCRIT 25.9 % (42.0-52.0); HEMOGLOBIN 9.1 g/dl (13.5-17.5); MEAN CORPUSCULAR HEMOGLOBIN 32.5 pg (27.0-33.0); MEAN CORPUSCULAR HGB CONC 35.1 g/dl (32.0-36.5); MEAN CORPUSCULAR VOLUME 92.5 fl (80.0-96.0); PLATELET COUNT, AUTOMATED 219 10^3/uL (150-450); RED CELL DISTRIBUTION WIDTH 17.8 % (11.5-14.5); WHITE BLOOD COUNT 9.4 10^3/uL (4.0-10.0)
[2018-02-12 07:37] LABS: ALBUMIN 2.2 GM/DL (3.2-5.2); ALBUMIN/GLOBULIN RATIO 0.51 (1.00-1.93); ALKALINE PHOSPHATASE 70 U/L (45-117); ALT/SGPT 20 U/L (12-78); ANION GAP 5 MEQ/L (8-16); AST/SGOT 19 U/L (7-37); BILIRUBIN,TOTAL 0.5 MG/DL (0.2-1.0); BLOOD UREA NITROGEN 20 MG/DL (7-18); CALCIUM LEVEL 8.7 MG/DL (8.8-10.2); CARBON DIOXIDE LEVEL 23 MEQ/L (21-32); CHLORIDE LEVEL 112 MEQ/L (98-107); CREATININE FOR GFR 1.01 MG/DL (0.70-1.30); GLOMERULAR FILTRATION RATE > 60.0 (>42); GLUCOSE, FASTING 70 MG/DL (70-100); POTASSIUM SERUM 4.9 MEQ/L (3.5-5.1); SODIUM LEVEL 140 MEQ/L (136-145); TOTAL PROTEIN 6.5 GM/DL (6.4-8.2)
[2018-02-12] MEDS: HumaLOG INSULIN (NovoLOG) PER UNIT SC ×3 (07:52→17:28)
[2018-02-12] MEDS: DRONABINOL 2.5 MG CAP (MARINOL) PO ×3 (08:51→17:28)
[2018-02-12] MEDS: METHYLPHENIDATE 5 MG TAB PO (08:51)
[2018-02-12] MEDS: MULTIVITAMINS/MINERALS THERAP 1 TAB PO (08:51)
[2018-02-12] MEDS: FLUCONAZOLE 100 MG TAB PO (08:51)
[2018-02-12] MEDS: MAGNESIUM GLUCONATE 500 MG TAB PO ×2 (08:51→20:27)
[2018-02-12] MEDS: APIXABAN 5 MG TAB (ELIQUIS) PO ×2 (08:51→20:27)
[2018-02-12] MEDS: AMIODARONE 200 MG TAB (PACERONE) PO (08:51)
[2018-02-12] MEDS: LEVEMIR (INSULIN DETEMIR) 1 UNITS/0.01ML SC (08:51)
[2018-02-12] MEDS: FLUoxetine 20 MG CAP PO (08:52)
[2018-02-12] MEDS: DIGOXIN 0.125 MG TAB PO (08:52)
[2018-02-12] MEDS: diltiaZEM **CD** 180 MG CAP PO ×2 (08:52→20:31)
[2018-02-12] MEDS: LINEZOLID 600MG TABLET (ZYVOX) PO ×2 (08:52→20:27)
[2018-02-12] MEDS: LISINOPRIL 20 MG TAB PO ×2 (08:53→20:31)
[2018-02-12] MEDS: LIDOCAINE 5% (LIDODERM) PATCH TD (08:53)
[2018-02-12] MEDS: METOPROLOL TARTRATE 100 MG TAB PO ×2 (08:53→20:31)
[2018-02-12] MEDS: LACTOBACILLUS ACIDOPHILUS CAP (BACID) PO ×2 (08:53→20:27)
[2018-02-12] MEDS: FERROUS SULFATE 325MG TAB PO ×2 (08:53→20:28)
[2018-02-12] MEDS: NS 1,000 ML IV (12:07)
[2018-02-12] MEDS: ACETAMINOPHEN TAB 650MG DOSE (2X325MG) PO (12:07)
[2018-02-12 12:51] LABS: BEDSIDE GLUCOSE 160 MG/DL (83-110)
[2018-02-12 13:08] LABS: BEDSIDE GLUCOSE 108 MG/DL (83-110)
[2018-02-12 14:14] LABS: HEMATOCRIT 26.3 % (42.0-52.0); MEAN CORPUSCULAR HEMOGLOBIN 31.8 pg (27.0-33.0); MEAN CORPUSCULAR HGB CONC 34.2 g/dl (32.0-36.5); MEAN CORPUSCULAR VOLUME 92.9 fl (80.0-96.0); PLATELET COUNT, AUTOMATED 258 10^3/uL (150-450); RED BLOOD COUNT 2.83 10^6/uL (4.30-6.10); RED CELL DISTRIBUTION WIDTH 17.9 % (11.5-14.5); WHITE BLOOD COUNT 9.8 10^3/uL (4.0-10.0)
[2018-02-12 14:38] LABS: ALBUMIN 2.2 GM/DL (3.2-5.2); ALBUMIN/GLOBULIN RATIO 0.59 (1.00-1.93); ALT/SGPT 21 U/L (12-78); ANION GAP 5 MEQ/L (8-16); AST/SGOT 21 U/L (7-37); BILIRUBIN,TOTAL 0.4 MG/DL (0.2-1.0); BLOOD UREA NITROGEN 20 MG/DL (7-18); CALCIUM LEVEL 8.5 MG/DL (8.8-10.2); CARBON DIOXIDE LEVEL 23 MEQ/L (21-32); CHLORIDE LEVEL 109 MEQ/L (98-107); CREATININE FOR GFR 1.25 MG/DL (0.70-1.30); GLOMERULAR FILTRATION RATE > 60.0 (>42); GLUCOSE, FASTING 106 MG/DL (70-100); POTASSIUM SERUM 4.9 MEQ/L (3.5-5.1); SODIUM LEVEL 137 MEQ/L (136-145); TOTAL PROTEIN 5.9 GM/DL (6.4-8.2); TROPONIN I 0.06 NG/ML (< 0.10)
[2018-02-12 14:51] LABS: CPK CREATINE PHOSPHOKINASE 55 U/L (39-308); DIGOXIN LEVEL 1.5 NG/ML (0.5-2.0)
[2018-02-12 15:23] LABS: ALKALINE PHOSPHATASE 71 U/L (45-117)
[2018-02-12 17:04] LABS: BEDSIDE GLUCOSE 397 MG/DL (83-110)
[2018-02-12 20:12] LABS: BEDSIDE GLUCOSE 180 MG/DL (83-110)
[2018-02-12] MEDS: traZODone 100 MG TAB PO (20:27)
[2018-02-12] MEDS: **NOTE PATIENT COMMENT** MISC XX (20:32)
[2018-02-12 21:43] LABS: CK-MB VALUE MASS 2.7 NG/ML (<3.6)
[2018-02-12 22:05] LABS: CPK CREATINE PHOSPHOKINASE 51 U/L (39-308); TROPONIN I 0.06 NG/ML (< 0.10)
[2018-02-12 22:15] LABS: CK-MB VALUE MASS 2.6 NG/ML (<3.6); MB/CK RELATIVE INDEX 5.09 (< OR =4)
[2018-02-13] MEDS: SLF 3 ML SYR IV ×3 (05:52→19:58)
[2018-02-13] MEDS: LevoFLOXacin 500 MG TABLET PO (05:52)
[2018-02-13 07:29] LABS: CK-MB VALUE MASS 2.5 NG/ML (<3.6); CPK CREATINE PHOSPHOKINASE 47 U/L (39-308); MB/CK RELATIVE INDEX 5.31 (< OR =4); TROPONIN I 0.06 NG/ML (< 0.10)
[2018-02-13] MEDS: HumaLOG INSULIN (NovoLOG) PER UNIT SC ×3 (07:30→17:15)
[2018-02-13 07:59] LABS: BEDSIDE GLUCOSE 85 MG/DL (83-110)
[2018-02-13] MEDS: DRONABINOL 2.5 MG CAP (MARINOL) PO ×3 (08:41→17:15)
[2018-02-13] MEDS: METOPROLOL TARTRATE 100 MG TAB PO ×2 (08:42→19:58)
[2018-02-13] MEDS: METHYLPHENIDATE 5 MG TAB PO (08:42)
[2018-02-13] MEDS: DIGOXIN 0.125 MG TAB PO (08:42)
[2018-02-13] MEDS: APIXABAN 5 MG TAB (ELIQUIS) PO ×2 (08:42→19:57)
[2018-02-13] MEDS: diltiaZEM **CD** 180 MG CAP PO ×2 (08:42→19:57)
[2018-02-13] MEDS: LISINOPRIL 20 MG TAB PO ×2 (08:43→19:57)
[2018-02-13] MEDS: MULTIVITAMINS/MINERALS THERAP 1 TAB PO (08:43)
[2018-02-13] MEDS: FLUoxetine 20 MG CAP PO (08:43)
[2018-02-13] MEDS: MAGNESIUM GLUCONATE 500 MG TAB PO ×2 (08:43→19:56)
[2018-02-13] MEDS: FLUCONAZOLE 100 MG TAB PO (08:43)
[2018-02-13] MEDS: LINEZOLID 600MG TABLET (ZYVOX) PO ×2 (08:43→19:57)
[2018-02-13] MEDS: FERROUS SULFATE 325MG TAB PO ×2 (08:43→19:58)
[2018-02-13] MEDS: LACTOBACILLUS ACIDOPHILUS CAP (BACID) PO ×2 (08:43→19:56)
[2018-02-13] MEDS: AMIODARONE 200 MG TAB (PACERONE) PO (08:43)
[2018-02-13] MEDS: LEVEMIR (INSULIN DETEMIR) 1 UNITS/0.01ML SC (08:44)
[2018-02-13] MEDS: LIDOCAINE 5% (LIDODERM) PATCH TD (08:44)
[2018-02-13] MEDS: NS 1,000 ML IV (08:44)
[2018-02-13 12:16] LABS: BEDSIDE GLUCOSE 78 MG/DL (83-110)
[2018-02-13 16:46] LABS: BEDSIDE GLUCOSE 138 MG/DL (83-110)
[2018-02-13] MEDS: traZODone 100 MG TAB PO (19:57)
[2018-02-13] MEDS: **NOTE PATIENT COMMENT** MISC XX (19:58)
[2018-02-13 20:02] LABS: BEDSIDE GLUCOSE 270 MG/DL (83-110)
[2018-02-14] MEDS: LevoFLOXacin 500 MG TABLET PO (05:23)
[2018-02-14] MEDS: SLF 3 ML SYR IV ×3 (05:23→22:00)
[2018-02-14] MEDS: NS 1,000 ML IV ×2 (05:23→22:00)
[2018-02-14] MEDS: HumaLOG INSULIN (NovoLOG) PER UNIT SC ×3 (07:30→17:11)
[2018-02-14 08:46] LABS: BEDSIDE GLUCOSE 72 MG/DL (83-110)
[2018-02-14] MEDS: AMIODARONE 200 MG TAB (PACERONE) PO (08:49)
[2018-02-14] MEDS: DRONABINOL 2.5 MG CAP (MARINOL) PO ×4 (08:49→17:16)
[2018-02-14] MEDS: METHYLPHENIDATE 5 MG TAB PO (08:49)
[2018-02-14] MEDS: LISINOPRIL 20 MG TAB PO ×2 (08:49→21:00)
[2018-02-14] MEDS: APIXABAN 5 MG TAB (ELIQUIS) PO ×2 (08:49→21:12)
[2018-02-14] MEDS: METOPROLOL TARTRATE 100 MG TAB PO ×2 (08:49→21:00)
[2018-02-14] MEDS: LACTOBACILLUS ACIDOPHILUS CAP (BACID) PO ×2 (08:50→21:12)
[2018-02-14] MEDS: DIGOXIN 0.125 MG TAB PO (08:50)
[2018-02-14] MEDS: LINEZOLID 600MG TABLET (ZYVOX) PO ×2 (08:50→21:12)
[2018-02-14] MEDS: MULTIVITAMINS/MINERALS THERAP 1 TAB PO (08:50)
[2018-02-14] MEDS: FERROUS SULFATE 325MG TAB PO ×2 (08:50→21:12)
[2018-02-14] MEDS: diltiaZEM **CD** 180 MG CAP PO ×2 (08:50→21:00)
[2018-02-14] MEDS: FLUCONAZOLE 100 MG TAB PO (08:51)
[2018-02-14] MEDS: LIDOCAINE 5% (LIDODERM) PATCH TD (08:51)
[2018-02-14] MEDS: FLUoxetine 20 MG CAP PO (08:51)
[2018-02-14] MEDS: MAGNESIUM GLUCONATE 500 MG TAB PO ×2 (08:52→21:12)
[2018-02-14] MEDS: LEVEMIR (INSULIN DETEMIR) 1 UNITS/0.01ML SC (09:04)
[2018-02-14 11:31] LABS: BEDSIDE GLUCOSE 143 MG/DL (83-110)
[2018-02-14 16:28] LABS: BEDSIDE GLUCOSE 184 MG/DL (83-110)
[2018-02-14] MEDS: **NOTE PATIENT COMMENT** MISC XX (21:00)
[2018-02-14 21:06] LABS: BEDSIDE GLUCOSE 144 MG/DL (83-110)
[2018-02-14] MEDS: traZODone 100 MG TAB PO (21:12)
[2018-02-15] MEDS ORDERED: UNRESOLVED CLARIFICATION ENTRY XX (00:01)
[2018-02-15] MEDS: NS 1,000 ML IV ×3 (00:23→21:53)
[2018-02-15] MEDS: SLF 3 ML SYR IV ×3 (06:00→21:53)
[2018-02-15 06:18] LABS: BEDSIDE GLUCOSE 73 MG/DL (83-110)
[2018-02-15] MEDS: LevoFLOXacin 500 MG TABLET PO (06:27)
[2018-02-15 07:16] LABS: HEMATOCRIT 26.7 % (42.0-52.0); HEMOGLOBIN 8.7 g/dl (13.5-17.5); MEAN CORPUSCULAR HEMOGLOBIN 29.7 pg (27.0-33.0); MEAN CORPUSCULAR HGB CONC 32.6 g/dl (32.0-36.5); MEAN CORPUSCULAR VOLUME 91.1 fl (80.0-96.0); PLATELET COUNT, AUTOMATED 179 10^3/uL (150-450); RED BLOOD COUNT 2.93 10^6/uL (4.30-6.10); RED CELL DISTRIBUTION WIDTH 17.4 % (11.5-14.5)
[2018-02-15 07:37] LABS: ALBUMIN 2.3 GM/DL (3.2-5.2); ALBUMIN/GLOBULIN RATIO 0.55 (1.00-1.93); ALKALINE PHOSPHATASE 73 U/L (45-117); ALT/SGPT 18 U/L (12-78); ANION GAP 6 MEQ/L (8-16); AST/SGOT 22 U/L (7-37); BILIRUBIN,TOTAL 0.5 MG/DL (0.2-1.0); BLOOD UREA NITROGEN 23 MG/DL (7-18); C REACTIVE PROTEIN QUANTITATIV 3.18 MG/DL (0.00-0.30); CALCIUM LEVEL 9.1 MG/DL (8.8-10.2); CARBON DIOXIDE LEVEL 22 MEQ/L (21-32); CHLORIDE LEVEL 111 MEQ/L (98-107); GLOMERULAR FILTRATION RATE > 60.0 (>42); GLUCOSE, FASTING 79 MG/DL (70-100); POTASSIUM SERUM 5.1 MEQ/L (3.5-5.1); SODIUM LEVEL 139 MEQ/L (136-145); TOTAL PROTEIN 6.5 GM/DL (6.4-8.2)
[2018-02-15] MEDS: MULTIVITAMINS/MINERALS THERAP 1 TAB PO (07:51)
[2018-02-15] MEDS: DIGOXIN 0.125 MG TAB PO (07:51)
[2018-02-15] MEDS: MAGNESIUM GLUCONATE 500 MG TAB PO ×2 (07:52→21:52)
[2018-02-15] MEDS: LACTOBACILLUS ACIDOPHILUS CAP (BACID) PO ×2 (07:52→21:52)
[2018-02-15] MEDS: FLUoxetine 20 MG CAP PO (07:52)
[2018-02-15] MEDS: LISINOPRIL 20 MG TAB PO (07:52)
[2018-02-15] MEDS: FLUCONAZOLE 100 MG TAB PO (07:52)
[2018-02-15] MEDS: AMIODARONE 200 MG TAB (PACERONE) PO (07:52)
[2018-02-15] MEDS: LINEZOLID 600MG TABLET (ZYVOX) PO ×2 (07:53→21:52)
[2018-02-15] MEDS: diltiaZEM **CD** 180 MG CAP PO ×2 (07:53→21:52)
[2018-02-15] MEDS: METHYLPHENIDATE 5 MG TAB PO (07:53)
[2018-02-15] MEDS: DRONABINOL 2.5 MG CAP (MARINOL) PO ×3 (07:53→16:54)
[2018-02-15] MEDS: FERROUS SULFATE 325MG TAB PO ×2 (07:53→21:52)
[2018-02-15] MEDS: APIXABAN 5 MG TAB (ELIQUIS) PO ×2 (07:53→21:52)
[2018-02-15] MEDS: METOPROLOL TARTRATE 100 MG TAB PO ×2 (07:53→21:51)
[2018-02-15] MEDS: LEVEMIR (INSULIN DETEMIR) 1 UNITS/0.01ML SC (07:54)
[2018-02-15] MEDS: HumaLOG INSULIN (NovoLOG) PER UNIT SC ×3 (07:54→16:53)
[2018-02-15] MEDS: LIDOCAINE 5% (LIDODERM) PATCH TD (07:54)
[2018-02-15] MEDS: ACETAMINOPHEN TAB 650MG DOSE (2X325MG) PO ×2 (10:29→21:51)
[2018-02-15 11:33] LABS: BEDSIDE GLUCOSE 175 MG/DL (83-110)
[2018-02-15 12:57] LABS: HEMATOCRIT 26.7 % (42.0-52.0); MEAN CORPUSCULAR HEMOGLOBIN 31.1 pg (27.0-33.0); MEAN CORPUSCULAR HGB CONC 33.7 g/dl (32.0-36.5); MEAN CORPUSCULAR VOLUME 92.4 fl (80.0-96.0); PLATELET COUNT, AUTOMATED 232 10^3/uL (150-450); RED BLOOD COUNT 2.89 10^6/uL (4.30-6.10); RED CELL DISTRIBUTION WIDTH 17.7 % (11.5-14.5)
[2018-02-15 13:06] LABS: INR 1.78; PROTHROMBIN TIME 21.3 SECONDS (12.4-14.5)
[2018-02-15 13:07] LABS: PARTIAL THROMBOPLASTIN TIME 40.9 SECONDS (26.8-37.9)
[2018-02-15 17:40] LABS: BEDSIDE GLUCOSE 186 MG/DL (83-110)
[2018-02-15] MEDS ORDERED: ISOVUE-370 76% 100ML VIAL (Q9967) As Ordered (18:00)
[2018-02-15 20:26] LABS: BEDSIDE GLUCOSE 197 MG/DL (83-110)
[2018-02-15] MEDS: LISINOPRIL 10 MG TAB PO (21:51)
[2018-02-15] MEDS: **NOTE PATIENT COMMENT** MISC XX (21:52)
[2018-02-15] MEDS: traZODone 100 MG TAB PO (21:52)
[2018-02-16] MEDS: SLF 3 ML SYR IV ×3 (05:55→22:00)
[2018-02-16] MEDS: LevoFLOXacin 500 MG TABLET PO (06:33)
[2018-02-16 07:01] LABS: HEMATOCRIT 22.9 % (42.0-52.0)
[2018-02-16 07:01] LABS: BEDSIDE GLUCOSE 108 MG/DL (83-110)
[2018-02-16] MEDS: HumaLOG INSULIN (NovoLOG) PER UNIT SC ×3 (07:30→17:18)
[2018-02-16] MEDS: NS 1,000 ML IV ×2 (07:40→18:49)
[2018-02-16] MEDS: FLUoxetine 20 MG CAP PO (08:23)
[2018-02-16] MEDS: DRONABINOL 2.5 MG CAP (MARINOL) PO ×3 (08:23→17:23)
[2018-02-16] MEDS: METHYLPHENIDATE 5 MG TAB PO (08:23)
[2018-02-16] MEDS: FLUCONAZOLE 100 MG TAB PO (08:23)
[2018-02-16] MEDS: AMIODARONE 200 MG TAB (PACERONE) PO (08:23)
[2018-02-16] MEDS: diltiaZEM **CD** 180 MG CAP PO ×2 (08:23→20:11)
[2018-02-16] MEDS: APIXABAN 5 MG TAB (ELIQUIS) PO ×2 (08:23→20:09)
[2018-02-16] MEDS: LACTOBACILLUS ACIDOPHILUS CAP (BACID) PO ×2 (08:24→20:10)
[2018-02-16] MEDS: MAGNESIUM GLUCONATE 500 MG TAB PO ×2 (08:24→20:11)
[2018-02-16] MEDS: ACETAMINOPHEN TAB 650MG DOSE (2X325MG) PO (08:24)
[2018-02-16] MEDS: LEVEMIR (INSULIN DETEMIR) 1 UNITS/0.01ML SC (08:24)
[2018-02-16] MEDS: DIGOXIN 0.125 MG TAB PO (08:24)
[2018-02-16] MEDS: METOPROLOL TARTRATE 100 MG TAB PO ×2 (08:25→20:10)
[2018-02-16] MEDS: LISINOPRIL 10 MG TAB PO ×2 (08:25→20:11)
[2018-02-16] MEDS: FERROUS SULFATE 325MG TAB PO ×2 (08:25→20:10)
[2018-02-16] MEDS: LIDOCAINE 5% (LIDODERM) PATCH TD (08:25)
[2018-02-16] MEDS: MULTIVITAMINS/MINERALS THERAP 1 TAB PO (08:25)
[2018-02-16] MEDS: LINEZOLID 600MG TABLET (ZYVOX) PO ×2 (08:25→20:11)
[2018-02-16 09:59] LABS: BASO % 0.3 % (0.0-1.0); EOS % 0.6 % (0.0-3.0); IMMATURE GRANULOCYTE % 0.4 % (0-3.0); LYMPH # 1.4 10^3/uL (1.5-4.5); LYMPH % 20.5 % (24.0-44.0); MEAN CORPUSCULAR HEMOGLOBIN 29.2 pg (27.0-33.0); MEAN CORPUSCULAR HGB CONC 31.9 g/dl (32.0-36.5); MEAN CORPUSCULAR VOLUME 91.5 fl (80.0-96.0); MONO # 0.5 10^3/uL (0.0-0.8); MONO % 7.2 % (0.0-5.0); NEUTROPHILS # 4.8 10^3/uL (1.8-7.7); PLATELET COUNT, AUTOMATED 158 10^3/uL (150-450); RED BLOOD COUNT 2.71 10^6/uL (4.30-6.10); RED CELL DISTRIBUTION WIDTH 17.7 % (11.5-14.5); WHITE BLOOD COUNT 6.8 10^3/uL (4.0-10.0)
[2018-02-16 10:11] LABS: ANION GAP 6 MEQ/L (8-16); BLOOD UREA NITROGEN 23 MG/DL (7-18); CALCIUM LEVEL 8.6 MG/DL (8.8-10.2); CARBON DIOXIDE LEVEL 22 MEQ/L (21-32); CHLORIDE LEVEL 112 MEQ/L (98-107); CREATININE FOR GFR 1.27 MG/DL (0.70-1.30); GLOMERULAR FILTRATION RATE 59.3 (>42); GLUCOSE, FASTING 109 MG/DL (70-100); SODIUM LEVEL 140 MEQ/L (136-145)
[2018-02-16 10:44] LABS: BASO % 0.3 % (0.0-1.0); EOS % 0.5 % (0.0-3.0); HEMATOCRIT 24.3 % (42.0-52.0); HEMOGLOBIN 7.9 g/dl (13.5-17.5); IMMATURE GRANULOCYTE % 0.5 % (0-3.0); LYMPH # 1.4 10^3/uL (1.5-4.5); LYMPH % 18.4 % (24.0-44.0); MEAN CORPUSCULAR HEMOGLOBIN 29.7 pg (27.0-33.0); MEAN CORPUSCULAR HGB CONC 32.5 g/dl (32.0-36.5); MEAN CORPUSCULAR VOLUME 91.4 fl (80.0-96.0); MONO # 0.6 10^3/uL (0.0-0.8); MONO % 7.4 % (0.0-5.0); NEUTROPHILS # 5.4 10^3/uL (1.8-7.7); NEUTROPHILS % 72.9 % (36.0-66.0); PLATELET COUNT, AUTOMATED 147 10^3/uL (150-450); RED BLOOD COUNT 2.66 10^6/uL (4.30-6.10); RED CELL DISTRIBUTION WIDTH 17.7 % (11.5-14.5); WHITE BLOOD COUNT 7.4 10^3/uL (4.0-10.0)
[2018-02-16 11:45] LABS: BEDSIDE GLUCOSE 111 MG/DL (83-110)
[2018-02-16 12:41] LABS: IMMEDIATE SPIN CROSSMATCH 1 2
[2018-02-16 17:13] LABS: BEDSIDE GLUCOSE 120 MG/DL (83-110)
[2018-02-16 17:22] LABS: IMMEDIATE SPIN CROSSMATCH 1
[2018-02-16] MEDS: traZODone 100 MG TAB PO (20:10)
[2018-02-16 20:29] LABS: BEDSIDE GLUCOSE 79 MG/DL (83-110)
[2018-02-16] MEDS: **NOTE PATIENT COMMENT** MISC XX (21:00)
[2018-02-17] MEDS: SLF 3 ML SYR IV ×3 (05:13→21:26)
[2018-02-17] MEDS: LevoFLOXacin 500 MG TABLET PO (06:09)
[2018-02-17 07:14] LABS: BEDSIDE GLUCOSE 86 MG/DL (83-110)
[2018-02-17] MEDS: HumaLOG INSULIN (NovoLOG) PER UNIT SC ×3 (07:30→17:07)
[2018-02-17] MEDS: FLUoxetine 20 MG CAP PO (09:28)
[2018-02-17] MEDS: LIDOCAINE 5% (LIDODERM) PATCH TD (09:28)
[2018-02-17] MEDS: DRONABINOL 2.5 MG CAP (MARINOL) PO ×3 (09:28→17:09)
[2018-02-17] MEDS: APIXABAN 5 MG TAB (ELIQUIS) PO ×2 (09:28→21:22)
[2018-02-17] MEDS: AMIODARONE 200 MG TAB (PACERONE) PO (09:28)
[2018-02-17] MEDS: LACTOBACILLUS ACIDOPHILUS CAP (BACID) PO ×2 (09:29→21:23)
[2018-02-17] MEDS: MULTIVITAMINS/MINERALS THERAP 1 TAB PO (09:29)
[2018-02-17] MEDS: LINEZOLID 600MG TABLET (ZYVOX) PO ×2 (09:29→21:24)
[2018-02-17] MEDS: FERROUS SULFATE 325MG TAB PO ×2 (09:29→21:24)
[2018-02-17] MEDS: FLUCONAZOLE 100 MG TAB PO (09:29)
[2018-02-17] MEDS: METHYLPHENIDATE 5 MG TAB PO (09:29)
[2018-02-17] MEDS: MAGNESIUM GLUCONATE 500 MG TAB PO ×2 (09:29→21:22)
[2018-02-17] MEDS: METOPROLOL TARTRATE 100 MG TAB PO ×2 (09:50→21:24)
[2018-02-17] MEDS: diltiaZEM **CD** 180 MG CAP PO ×2 (09:50→21:25)
[2018-02-17] MEDS: LISINOPRIL 10 MG TAB PO ×2 (09:51→21:23)
[2018-02-17] MEDS: DIGOXIN 0.125 MG TAB PO (09:51)
[2018-02-17] MEDS: LEVEMIR (INSULIN DETEMIR) 1 UNITS/0.01ML SC ×2 (09:52→10:12)
[2018-02-17] MEDS: ACETAMINOPHEN TAB 650MG DOSE (2X325MG) PO (10:23)
[2018-02-17 15:15] LABS: BEDSIDE GLUCOSE 145 MG/DL (83-110)
[2018-02-17 17:08] LABS: BEDSIDE GLUCOSE 141 MG/DL (83-110)
[2018-02-17] MEDS: FLEET ENEMA PR (17:59)
[2018-02-17 19:58] LABS: BEDSIDE GLUCOSE 154 MG/DL (83-110)
[2018-02-17] MEDS: **NOTE PATIENT COMMENT** MISC XX (21:00)
[2018-02-17] MEDS: traZODone 100 MG TAB PO (21:24)
[2018-02-18] MEDS: SLF 3 ML SYR IV ×3 (05:29→22:00)
[2018-02-18] MEDS: LevoFLOXacin 500 MG TABLET PO (05:30)
[2018-02-18 06:19] LABS: BEDSIDE GLUCOSE 78 MG/DL (83-110)
[2018-02-18 06:46] LABS: BASO % 0.4 % (0.0-1.0); EOS % 0.5 % (0.0-3.0); HEMATOCRIT 27.2 % (42.0-52.0); HEMOGLOBIN 9.5 g/dl (13.5-17.5); IMMATURE GRANULOCYTE % 0.4 % (0-3.0); LYMPH # 1.8 10^3/uL (1.5-4.5); LYMPH % 23.7 % (24.0-44.0); MEAN CORPUSCULAR HEMOGLOBIN 32.3 pg (27.0-33.0); MEAN CORPUSCULAR HGB CONC 34.9 g/dl (32.0-36.5); MEAN CORPUSCULAR VOLUME 92.5 fl (80.0-96.0); MONO # 0.5 10^3/uL (0.0-0.8); NEUTROPHILS # 5.1 10^3/uL (1.8-7.7); PLATELET COUNT, AUTOMATED 126 10^3/uL (150-450); RED BLOOD COUNT 2.94 10^6/uL (4.30-6.10); RED CELL DISTRIBUTION WIDTH 17.4 % (11.5-14.5); WHITE BLOOD COUNT 7.5 10^3/uL (4.0-10.0)
[2018-02-18 07:07] LABS: ANION GAP 8 MEQ/L (8-16); BLOOD UREA NITROGEN 19 MG/DL (7-18); CALCIUM LEVEL 8.7 MG/DL (8.8-10.2); CARBON DIOXIDE LEVEL 21 MEQ/L (21-32); CHLORIDE LEVEL 111 MEQ/L (98-107); GLOMERULAR FILTRATION RATE > 60.0 (>42); GLUCOSE, FASTING 84 MG/DL (70-100); POTASSIUM SERUM 4.7 MEQ/L (3.5-5.1); SODIUM LEVEL 140 MEQ/L (136-145)
[2018-02-18] MEDS: HumaLOG INSULIN (NovoLOG) PER UNIT SC ×3 (07:30→17:30)
[2018-02-18] MEDS: LIDOCAINE 5% (LIDODERM) PATCH TD (08:39)
[2018-02-18] MEDS: METOPROLOL TARTRATE 100 MG TAB PO ×2 (08:39→20:42)
[2018-02-18] MEDS: APIXABAN 5 MG TAB (ELIQUIS) PO ×2 (08:40→20:43)
[2018-02-18] MEDS: MULTIVITAMINS/MINERALS THERAP 1 TAB PO (08:40)
[2018-02-18] MEDS: LACTOBACILLUS ACIDOPHILUS CAP (BACID) PO ×2 (08:40→20:41)
[2018-02-18] MEDS: METHYLPHENIDATE 5 MG TAB PO (08:40)
[2018-02-18] MEDS: AMIODARONE 200 MG TAB (PACERONE) PO (08:40)
[2018-02-18] MEDS: diltiaZEM **CD** 180 MG CAP PO ×2 (08:40→20:43)
[2018-02-18] MEDS: LINEZOLID 600MG TABLET (ZYVOX) PO (08:41)
[2018-02-18] MEDS: DIGOXIN 0.125 MG TAB PO (08:41)
[2018-02-18] MEDS: FLUCONAZOLE 100 MG TAB PO (08:41)
[2018-02-18] MEDS: LISINOPRIL 10 MG TAB PO ×2 (08:41→20:42)
[2018-02-18] MEDS: FLUoxetine 20 MG CAP PO (08:41)
[2018-02-18] MEDS: MAGNESIUM GLUCONATE 500 MG TAB PO ×2 (08:41→20:41)
[2018-02-18] MEDS: DRONABINOL 2.5 MG CAP (MARINOL) PO ×3 (08:41→18:03)
[2018-02-18] MEDS: FERROUS SULFATE 325MG TAB PO ×2 (08:42→20:41)
[2018-02-18] MEDS: LEVEMIR (INSULIN DETEMIR) 1 UNITS/0.01ML SC (08:42)
[2018-02-18 12:23] LABS: BEDSIDE GLUCOSE 137 MG/DL (83-110)
[2018-02-18 16:56] LABS: BEDSIDE GLUCOSE 162 MG/DL (83-110)
[2018-02-18 20:33] LABS: BEDSIDE GLUCOSE 218 MG/DL (83-110)
[2018-02-18] MEDS: traZODone 100 MG TAB PO (20:42)
[2018-02-18] MEDS: **NOTE PATIENT COMMENT** MISC XX (20:43)
[2018-02-19] MEDS: SLF 3 ML SYR IV (05:59)
[2018-02-19 06:50] LABS: BEDSIDE GLUCOSE 118 MG/DL (83-110)
[2018-02-19 06:57] LABS: HEMATOCRIT 28.7 % (42.0-52.0); HEMOGLOBIN 9.7 g/dl (13.5-17.5); MEAN CORPUSCULAR HEMOGLOBIN 30.6 pg (27.0-33.0); MEAN CORPUSCULAR HGB CONC 33.8 g/dl (32.0-36.5); MEAN CORPUSCULAR VOLUME 90.5 fl (80.0-96.0); PLATELET COUNT, AUTOMATED 129 10^3/uL (150-450); RED BLOOD COUNT 3.17 10^6/uL (4.30-6.10); RED CELL DISTRIBUTION WIDTH 16.9 % (11.5-14.5); WHITE BLOOD COUNT 7.2 10^3/uL (4.0-10.0)
[2018-02-19 07:09] LABS: C REACTIVE PROTEIN QUANTITATIV 1.08 MG/DL (0.00-0.30)
[2018-02-19] MEDS: HumaLOG INSULIN (NovoLOG) PER UNIT SC ×3 (07:30→16:40)
[2018-02-19 08:09] LABS: ERYTHROCYTE SEDIMENTATION RATE 100 mm/hr (0-20)
[2018-02-19] MEDS: METOPROLOL TARTRATE 100 MG TAB PO ×2 (08:10→20:10)
[2018-02-19] MEDS: AMIODARONE 200 MG TAB (PACERONE) PO (08:23)
[2018-02-19] MEDS: DRONABINOL 2.5 MG CAP (MARINOL) PO ×3 (08:23→16:55)
[2018-02-19] MEDS: LIDOCAINE 5% (LIDODERM) PATCH TD (08:23)
[2018-02-19] MEDS: METHYLPHENIDATE 5 MG TAB PO (08:23)
[2018-02-19] MEDS: LEVEMIR (INSULIN DETEMIR) 1 UNITS/0.01ML SC (08:23)
[2018-02-19] MEDS: APIXABAN 5 MG TAB (ELIQUIS) PO ×2 (08:24→20:06)
[2018-02-19] MEDS: DIGOXIN 0.125 MG TAB PO (08:24)
[2018-02-19] MEDS: LACTOBACILLUS ACIDOPHILUS CAP (BACID) PO ×2 (08:24→20:06)
[2018-02-19] MEDS: MULTIVITAMINS/MINERALS THERAP 1 TAB PO (08:24)
[2018-02-19] MEDS: LISINOPRIL 10 MG TAB PO ×2 (08:24→20:07)
[2018-02-19] MEDS: FERROUS SULFATE 325MG TAB PO ×2 (08:24→20:06)
[2018-02-19] MEDS: FLUoxetine 20 MG CAP PO (08:24)
[2018-02-19] MEDS: MAGNESIUM GLUCONATE 500 MG TAB PO ×2 (08:24→20:06)
[2018-02-19] MEDS: diltiaZEM **CD** 180 MG CAP PO ×2 (08:25→20:10)
[2018-02-19 11:34] LABS: BEDSIDE GLUCOSE 140 MG/DL (83-110)
[2018-02-19 16:26] LABS: BEDSIDE GLUCOSE 130 MG/DL (83-110)
[2018-02-19 19:36] LABS: BEDSIDE GLUCOSE 153 MG/DL (83-110)
[2018-02-19] MEDS: traZODone 100 MG TAB PO (20:06)
[2018-02-19] MEDS: **NOTE PATIENT COMMENT** MISC XX (20:07)
[2018-02-19] MEDS: ACETAMINOPHEN TAB 650MG DOSE (2X325MG) PO (20:08)
[2018-02-20 06:04] LABS: BEDSIDE GLUCOSE 108 MG/DL (83-110)
[2018-02-20] MEDS: HumaLOG INSULIN (NovoLOG) PER UNIT SC ×3 (07:30→17:05)
[2018-02-20] MEDS: LISINOPRIL 10 MG TAB PO ×2 (08:37→21:32)
[2018-02-20] MEDS: DRONABINOL 2.5 MG CAP (MARINOL) PO ×3 (08:37→17:06)
[2018-02-20] MEDS: diltiaZEM **CD** 180 MG CAP PO ×2 (08:37→21:32)
[2018-02-20] MEDS: AMIODARONE 200 MG TAB (PACERONE) PO (08:37)
[2018-02-20] MEDS: FLUoxetine 20 MG CAP PO (08:37)
[2018-02-20] MEDS: APIXABAN 5 MG TAB (ELIQUIS) PO ×2 (08:37→21:32)
[2018-02-20] MEDS: FERROUS SULFATE 325MG TAB PO ×2 (08:38→21:32)
[2018-02-20] MEDS: LACTOBACILLUS ACIDOPHILUS CAP (BACID) PO ×2 (08:38→21:32)
[2018-02-20] MEDS: MULTIVITAMINS/MINERALS THERAP 1 TAB PO (08:38)
[2018-02-20] MEDS: MAGNESIUM GLUCONATE 500 MG TAB PO ×2 (08:38→21:33)
[2018-02-20] MEDS: METHYLPHENIDATE 5 MG TAB PO (08:38)
[2018-02-20] MEDS: DIGOXIN 0.125 MG TAB PO (08:38)
[2018-02-20] MEDS: LIDOCAINE 5% (LIDODERM) PATCH TD (08:39)
[2018-02-20] MEDS: LEVEMIR (INSULIN DETEMIR) 1 UNITS/0.01ML SC (08:39)
[2018-02-20] MEDS: METOPROLOL TARTRATE 100 MG TAB PO ×2 (08:40→21:32)
[2018-02-20 11:38] LABS: BEDSIDE GLUCOSE 180 MG/DL (83-110)
[2018-02-20 16:46] LABS: BEDSIDE GLUCOSE 189 MG/DL (83-110)
[2018-02-20] MEDS: **NOTE PATIENT COMMENT** MISC XX (21:00)
[2018-02-20 21:31] LABS: BEDSIDE GLUCOSE 289 MG/DL (83-110)
[2018-02-20] MEDS: traZODone 100 MG TAB PO (21:32)
[2018-02-20] MEDS: ACETAMINOPHEN TAB 650MG DOSE (2X325MG) PO (21:33)
[2018-02-21 06:27] LABS: BEDSIDE GLUCOSE 126 MG/DL (83-110)
[2018-02-21] MEDS: HumaLOG INSULIN (NovoLOG) PER UNIT SC ×4 (07:37→17:22)
[2018-02-21] MEDS: MULTIVITAMINS/MINERALS THERAP 1 TAB PO (08:23)
[2018-02-21] MEDS: DRONABINOL 2.5 MG CAP (MARINOL) PO ×3 (08:23→17:22)
[2018-02-21] MEDS: APIXABAN 5 MG TAB (ELIQUIS) PO ×2 (08:24→21:04)
[2018-02-21] MEDS: LACTOBACILLUS ACIDOPHILUS CAP (BACID) PO ×2 (08:24→21:05)
[2018-02-21] MEDS: MAGNESIUM GLUCONATE 500 MG TAB PO ×2 (08:24→21:04)
[2018-02-21] MEDS: METHYLPHENIDATE 5 MG TAB PO (08:24)
[2018-02-21] MEDS: DIGOXIN 0.125 MG TAB PO (08:24)
[2018-02-21] MEDS: METOPROLOL TARTRATE 100 MG TAB PO ×2 (08:26→21:00)
[2018-02-21] MEDS: LISINOPRIL 10 MG TAB PO ×2 (08:27→21:05)
[2018-02-21] MEDS: AMIODARONE 200 MG TAB (PACERONE) PO (08:27)
[2018-02-21] MEDS: FERROUS SULFATE 325MG TAB PO ×2 (08:27→21:05)
[2018-02-21] MEDS: diltiaZEM **CD** 180 MG CAP PO ×2 (08:28→20:59)
[2018-02-21] MEDS: LEVEMIR (INSULIN DETEMIR) 1 UNITS/0.01ML SC (08:28)
[2018-02-21] MEDS: FLUoxetine 20 MG CAP PO (08:28)
[2018-02-21] MEDS: LIDOCAINE 5% (LIDODERM) PATCH TD (09:30)
[2018-02-21 12:18] LABS: BEDSIDE GLUCOSE 197 MG/DL (83-110)
[2018-02-21 17:01] LABS: BEDSIDE GLUCOSE 228 MG/DL (83-110)
[2018-02-21 19:52] LABS: BEDSIDE GLUCOSE 212 MG/DL (83-110)
[2018-02-21] MEDS: traZODone 100 MG TAB PO (21:05)
[2018-02-21] MEDS: **NOTE PATIENT COMMENT** MISC XX (21:06)
[2018-02-21] MEDS: ACETAMINOPHEN TAB 650MG DOSE (2X325MG) PO (21:06)
[2018-02-22 06:00] LABS: BEDSIDE GLUCOSE 119 MG/DL (83-110)
[2018-02-22] MEDS: HumaLOG INSULIN (NovoLOG) PER UNIT SC ×3 (07:09→16:57)
[2018-02-22] MEDS: LEVEMIR (INSULIN DETEMIR) 1 UNITS/0.01ML SC (08:32)
[2018-02-22] MEDS: MAGNESIUM GLUCONATE 500 MG TAB PO ×2 (08:34→20:33)
[2018-02-22] MEDS: diltiaZEM **CD** 180 MG CAP PO ×2 (08:34→20:34)
[2018-02-22] MEDS: LACTOBACILLUS ACIDOPHILUS CAP (BACID) PO ×2 (08:34→20:34)
[2018-02-22] MEDS: METOPROLOL TARTRATE 100 MG TAB PO ×2 (08:35→20:33)
[2018-02-22] MEDS: LISINOPRIL 10 MG TAB PO ×2 (08:35→20:33)
[2018-02-22] MEDS: MULTIVITAMINS/MINERALS THERAP 1 TAB PO (08:35)
[2018-02-22] MEDS: FERROUS SULFATE 325MG TAB PO ×2 (08:35→20:34)
[2018-02-22] MEDS: METHYLPHENIDATE 5 MG TAB PO (08:35)
[2018-02-22] MEDS: DIGOXIN 0.125 MG TAB PO (08:35)
[2018-02-22] MEDS: AMIODARONE 200 MG TAB (PACERONE) PO (08:36)
[2018-02-22] MEDS: FLUoxetine 20 MG CAP PO (08:36)
[2018-02-22] MEDS: LIDOCAINE 5% (LIDODERM) PATCH TD (08:36)
[2018-02-22] MEDS: APIXABAN 5 MG TAB (ELIQUIS) PO ×2 (08:36→20:33)
[2018-02-22] MEDS: DRONABINOL 2.5 MG CAP (MARINOL) PO ×3 (08:36→18:01)
[2018-02-22 11:36] LABS: BEDSIDE GLUCOSE 144 MG/DL (83-110)
[2018-02-22 16:51] LABS: BEDSIDE GLUCOSE 146 MG/DL (83-110)
[2018-02-22] MEDS: traZODone 100 MG TAB PO (20:32)
[2018-02-22] MEDS: **NOTE PATIENT COMMENT** MISC XX (20:34)
[2018-02-23 06:55] LABS: BEDSIDE GLUCOSE 124 MG/DL (83-110)
[2018-02-23 07:17] LABS: BASO # 0.1 10^3/uL (0.0-0.2); BASO % 0.6 % (0.0-1.0); EOS # 0.1 10^3/uL (0.0-0.50); EOS % 1.1 % (0.0-3.0); HEMATOCRIT 29.7 % (42.0-52.0); IMMATURE GRANULOCYTE % 1.5 % (0-3.0); LYMPH # 2.2 10^3/uL (1.5-4.5); LYMPH % 25.3 % (24.0-44.0); MEAN CORPUSCULAR HEMOGLOBIN 30.2 pg (27.0-33.0); MEAN CORPUSCULAR HGB CONC 33.7 g/dl (32.0-36.5); MEAN CORPUSCULAR VOLUME 89.7 fl (80.0-96.0); MONO # 0.9 10^3/uL (0.0-0.8); MONO % 10.5 % (0.0-5.0); NEUTROPHILS # 5.3 10^3/uL (1.8-7.7); PLATELET COUNT, AUTOMATED 140 10^3/uL (150-450); RED BLOOD COUNT 3.31 10^6/uL (4.30-6.10); RED CELL DISTRIBUTION WIDTH 17.1 % (11.5-14.5); WHITE BLOOD COUNT 8.7 10^3/uL (4.0-10.0)
[2018-02-23] MEDS: HumaLOG INSULIN (NovoLOG) PER UNIT SC ×3 (07:30→17:48)
[2018-02-23 07:41] LABS: ANION GAP 5 MEQ/L (8-16); BLOOD UREA NITROGEN 18 MG/DL (7-18); CALCIUM LEVEL 8.9 MG/DL (8.8-10.2); CARBON DIOXIDE LEVEL 26 MEQ/L (21-32); CHLORIDE LEVEL 105 MEQ/L (98-107); CREATININE FOR GFR 1.04 MG/DL (0.70-1.30); GLOMERULAR FILTRATION RATE > 60.0 (>42); GLUCOSE, FASTING 121 MG/DL (70-100); POTASSIUM SERUM 4.5 MEQ/L (3.5-5.1); SODIUM LEVEL 136 MEQ/L (136-145)
[2018-02-23] MEDS: LACTOBACILLUS ACIDOPHILUS CAP (BACID) PO ×2 (09:54→20:43)
[2018-02-23] MEDS: FERROUS SULFATE 325MG TAB PO ×2 (09:54→20:43)
[2018-02-23] MEDS: LIDOCAINE 5% (LIDODERM) PATCH TD (09:54)
[2018-02-23] MEDS: MAGNESIUM GLUCONATE 500 MG TAB PO ×2 (09:54→20:42)
[2018-02-23] MEDS: DRONABINOL 2.5 MG CAP (MARINOL) PO ×3 (09:54→17:47)
[2018-02-23] MEDS: FLUoxetine 20 MG CAP PO (09:54)
[2018-02-23] MEDS: MULTIVITAMINS/MINERALS THERAP 1 TAB PO (09:54)
[2018-02-23] MEDS: LISINOPRIL 10 MG TAB PO ×2 (09:55→20:43)
[2018-02-23] MEDS: APIXABAN 5 MG TAB (ELIQUIS) PO ×2 (09:55→20:43)
[2018-02-23] MEDS: DIGOXIN 0.125 MG TAB PO (09:55)
[2018-02-23] MEDS: METOPROLOL TARTRATE 100 MG TAB PO ×2 (09:55→20:44)
[2018-02-23] MEDS: AMIODARONE 200 MG TAB (PACERONE) PO (09:55)
[2018-02-23] MEDS: diltiaZEM **CD** 180 MG CAP PO ×2 (09:56→20:43)
[2018-02-23] MEDS: LEVEMIR (INSULIN DETEMIR) 1 UNITS/0.01ML SC (09:56)
[2018-02-23] MEDS: METHYLPHENIDATE 5 MG TAB PO (09:57)
[2018-02-23 12:37] LABS: BEDSIDE GLUCOSE 188 MG/DL (83-110)
[2018-02-23 17:32] LABS: BEDSIDE GLUCOSE 212 MG/DL (83-110)
[2018-02-23 18:18] LABS: C REACTIVE PROTEIN QUANTITATIV 1.07 MG/DL (0.00-0.30)
[2018-02-23 20:19] LABS: BEDSIDE GLUCOSE 207 MG/DL (83-110)
[2018-02-23] MEDS: traZODone 100 MG TAB PO (20:43)
[2018-02-23] MEDS: **NOTE PATIENT COMMENT** MISC XX (20:44)
[2018-02-24 06:41] LABS: BEDSIDE GLUCOSE 145 MG/DL (83-110)
[2018-02-24] MEDS: HumaLOG INSULIN (NovoLOG) PER UNIT SC ×3 (07:50→17:30)
[2018-02-24] MEDS: DRONABINOL 2.5 MG CAP (MARINOL) PO ×3 (07:55→17:30)
[2018-02-24] MEDS: MULTIVITAMINS/MINERALS THERAP 1 TAB PO (08:40)
[2018-02-24] MEDS: MAGNESIUM GLUCONATE 500 MG TAB PO ×2 (08:40→22:04)
[2018-02-24] MEDS: AMIODARONE 200 MG TAB (PACERONE) PO (08:40)
[2018-02-24] MEDS: LACTOBACILLUS ACIDOPHILUS CAP (BACID) PO ×2 (08:40→22:04)
[2018-02-24] MEDS: METHYLPHENIDATE 5 MG TAB PO (08:40)
[2018-02-24] MEDS: FLUoxetine 20 MG CAP PO (08:40)
[2018-02-24] MEDS: FERROUS SULFATE 325MG TAB PO ×2 (08:40→22:03)
[2018-02-24] MEDS: APIXABAN 5 MG TAB (ELIQUIS) PO ×2 (08:40→22:04)
[2018-02-24] MEDS: DIGOXIN 0.125 MG TAB PO (08:41)
[2018-02-24] MEDS: LISINOPRIL 10 MG TAB PO ×2 (08:41→22:03)
[2018-02-24] MEDS: diltiaZEM **CD** 180 MG CAP PO ×2 (08:41→22:04)
[2018-02-24] MEDS: METOPROLOL TARTRATE 100 MG TAB PO ×2 (08:41→22:03)
[2018-02-24] MEDS: LIDOCAINE 5% (LIDODERM) PATCH TD (08:42)
[2018-02-24] MEDS: LEVEMIR (INSULIN DETEMIR) 1 UNITS/0.01ML SC (08:42)
[2018-02-24 11:10] LABS: BEDSIDE GLUCOSE 164 MG/DL (83-110)
[2018-02-24] MEDS: traZODone 100 MG TAB PO (22:02)
[2018-02-24] MEDS: ACETAMINOPHEN TAB 650MG DOSE (2X325MG) PO (22:04)
[2018-02-24] MEDS: **NOTE PATIENT COMMENT** MISC XX (22:08)
[2018-02-25] MEDS: HumaLOG INSULIN (NovoLOG) PER UNIT SC ×3 (07:57→17:25)
[2018-02-25] MEDS: LACTOBACILLUS ACIDOPHILUS CAP (BACID) PO ×2 (08:12→21:40)
[2018-02-25] MEDS: METOPROLOL TARTRATE 100 MG TAB PO ×2 (08:12→21:41)
[2018-02-25] MEDS: DIGOXIN 0.125 MG TAB PO (08:13)
[2018-02-25] MEDS: AMIODARONE 200 MG TAB (PACERONE) PO (08:13)
[2018-02-25] MEDS: MAGNESIUM GLUCONATE 500 MG TAB PO ×2 (08:13→21:40)
[2018-02-25] MEDS: diltiaZEM **CD** 180 MG CAP PO ×2 (08:13→21:40)
[2018-02-25] MEDS: MULTIVITAMINS/MINERALS THERAP 1 TAB PO (08:13)
[2018-02-25] MEDS: FLUoxetine 20 MG CAP PO (08:13)
[2018-02-25] MEDS: DRONABINOL 2.5 MG CAP (MARINOL) PO ×3 (08:13→17:24)
[2018-02-25] MEDS: APIXABAN 5 MG TAB (ELIQUIS) PO ×2 (08:13→21:41)
[2018-02-25] MEDS: LEVEMIR (INSULIN DETEMIR) 1 UNITS/0.01ML SC (08:14)
[2018-02-25] MEDS: LISINOPRIL 10 MG TAB PO ×2 (08:14→21:41)
[2018-02-25] MEDS: LIDOCAINE 5% (LIDODERM) PATCH TD (08:14)
[2018-02-25] MEDS: FERROUS SULFATE 325MG TAB PO ×2 (08:14→21:40)
[2018-02-25] MEDS: METHYLPHENIDATE 5 MG TAB PO (08:14)
[2018-02-25 10:11] LABS: BEDSIDE GLUCOSE 229 MG/DL (83-110)
[2018-02-25 10:12] LABS: BEDSIDE GLUCOSE 105 MG/DL (83-110)
[2018-02-25 14:33] LABS: BEDSIDE GLUCOSE 137 MG/DL (83-110)
[2018-02-25 14:33] LABS: BEDSIDE GLUCOSE 177 MG/DL (83-110)
[2018-02-25 17:19] LABS: BEDSIDE GLUCOSE 182 MG/DL (83-110)
[2018-02-25 21:32] LABS: BEDSIDE GLUCOSE 162 MG/DL (83-110)
[2018-02-25] MEDS: ACETAMINOPHEN TAB 650MG DOSE (2X325MG) PO (21:41)
[2018-02-25] MEDS: traZODone 100 MG TAB PO (21:41)
[2018-02-25] MEDS: **NOTE PATIENT COMMENT** MISC XX (21:44)
[2018-02-26 07:00] LABS: BEDSIDE GLUCOSE 127 MG/DL (83-110)
[2018-02-26] MEDS: HumaLOG INSULIN (NovoLOG) PER UNIT SC (07:30)
[2018-02-26] MEDS: FERROUS SULFATE 325MG TAB PO (08:51)
[2018-02-26] MEDS: LACTOBACILLUS ACIDOPHILUS CAP (BACID) PO (08:51)
[2018-02-26] MEDS: FLUoxetine 20 MG CAP PO (08:51)
[2018-02-26] MEDS: DRONABINOL 2.5 MG CAP (MARINOL) PO (08:51)
[2018-02-26] MEDS: APIXABAN 5 MG TAB (ELIQUIS) PO (08:51)
[2018-02-26] MEDS: MAGNESIUM GLUCONATE 500 MG TAB PO (08:51)
[2018-02-26] MEDS: MULTIVITAMINS/MINERALS THERAP 1 TAB PO (08:51)
[2018-02-26] MEDS: LEVEMIR (INSULIN DETEMIR) 1 UNITS/0.01ML SC (08:52)
[2018-02-26] MEDS: AMIODARONE 200 MG TAB (PACERONE) PO (08:52)
[2018-02-26] MEDS: LIDOCAINE 5% (LIDODERM) PATCH TD (08:52)
[2018-02-26] MEDS: METHYLPHENIDATE 5 MG TAB PO (08:52)
[2018-02-26] MEDS: METOPROLOL TARTRATE 100 MG TAB PO (08:54)
[2018-02-26] MEDS: diltiaZEM **CD** 180 MG CAP PO (08:55)
[2018-02-26] MEDS: DIGOXIN 0.125 MG TAB PO (08:55)
[2018-02-26] MEDS: LISINOPRIL 10 MG TAB PO (09:00)
== END 2018-02-26 10:20 | DRG 56 ==
LOC: M PM&R 01-16 21:29
PROVIDERS: Physical Medicine & Rehabilitation
PROC: 30233N1 Transfusion of Nonautologous Red Blood Cells into Peripheral Vein, Percutaneous Approach (ICD-10-PCS; principal; 2018-01-15)
PROC: 0W9J3ZZ Drainage of Pelvic Cavity, Percutaneous Approach (ICD-10-PCS; 2018-01-29)
PROC: 30233R1 Transfusion of Nonautologous Platelets into Peripheral Vein, Percutaneous Approach (ICD-10-PCS; 2018-02-16)
DX: I69.354 Hemiplegia and hemiparesis following cerebral infarction affecting left non-dominant side (principal); K65.1 Peritoneal abscess; G93.40 Encephalopathy, unspecified; J69.0 Pneumonitis due to inhalation of food and vomit; I13.0 Hypertensive heart and chronic kidney disease with heart failure and stage 1 through stage 4 chronic kidney disease, or unspecified chronic kidney disease; I42.9 Cardiomyopathy, unspecified; I50.22 Chronic systolic (congestive) heart failure; N17.9 Acute kidney failure, unspecified; D62 Acute posthemorrhagic anemia; E46 Unspecified protein-calorie malnutrition; T81.4XXA Infection following a procedure, initial encounter; N13.30 Unspecified hydronephrosis; C67.9 Malignant neoplasm of bladder, unspecified; I48.2 Chronic atrial fibrillation; E11.9 Type 2 diabetes mellitus without complications; E78.5 Hyperlipidemia, unspecified; Z95.810 Presence of automatic (implantable) cardiac defibrillator; E66.9 Obesity, unspecified; N18.3 Chronic kidney disease, stage 3 (moderate); E83.42 Hypomagnesemia; I69.391 Dysphagia following cerebral infarction; Z96.0 Presence of urogenital implants; Z72.0 Tobacco use; G47.33 Obstructive sleep apnea (adult) (pediatric); D63.1 Anemia in chronic kidney disease; G47.00 Insomnia, unspecified; Z88.8 Allergy status to other drugs, medicaments and biological substances; I25.2 Old myocardial infarction; I69.322 Dysarthria following cerebral infarction; I25.10 Atherosclerotic heart disease of native coronary artery without angina pectoris; Z79.01 Long term (current) use of anticoagulants; Z79.899 Other long term (current) drug therapy; Z79.4 Long term (current) use of insulin; G89.29 Other chronic pain; D69.6 Thrombocytopenia, unspecified; D72.829 Elevated white blood cell count, unspecified; F11.90 Opioid use, unspecified, uncomplicated; R31.0 Gross hematuria